=== PATIENT | female | born 1955 | race Caucasian/White ===

== ENCOUNTER 2016-12-16 14:37 | Inpatient (IN) ==
[2016-12-16] MEDS ORDERED: ASPIRIN EC PO ONE (15:53)
--- NOTE | 2016-12-16 16:34 | EKG Report ---
Test Performed on : 12/16/2016 4:24:07 PM Test Reason : chest pain Blood Pressure : / mmHG Vent. Rate : 075 BPM Atrial Rate : 075 BPM P-R Int : 142 ms QRS Dur : 078 ms QT Int : 422 ms P-R-T Axes : 031 018 046 degrees QTc Int : 471 ms Normal sinus rhythm. Normal ECG When compared with ECG of 31-AUG-2016 09:28, aberrant conduction. is no longer present Confirmed by Chirag Cho MD ([id number]) on 12/17/2016 9:47:45 PM
[2016-12-16 16:41] LABS: INR 1.08; PROTIME 11.5 Seconds (9.2-11.7); PTT 26.8 Seconds (22.0-36.0)
[2016-12-16 16:49] LABS: BASO% 0.4 % (0.0-0.8); EOS# 3.43 X1000 (0.0-0.7); EOS% 29.6 % (0.0-10.0); HEMATOCRIT 38.1 % (37.0-47.0); HEMOGLOBIN 12.4 g/dL (12.0-16.0); IMM GRAN# 0.03 X1000 (0.0-0.04); IMM GRAN% 0.3 % (0.0-0.5); LYMPH# 2.18 X1000 (1.2-3.4); LYMPH% 18.8 % (20.5-51.1); MANUAL DIFF NEEDED? YES; MCH 29.4 PG (27-31); MCHC 32.5 g/dL (33-37); MCV 90.3 FL (81-99); MONO# 0.66 X1000 (0.11-0.59); MONO% 5.7 % (1.7-9.3); MPV 9.5 FL (7.4-10.4); NEUT% 45.2 % (42.2-75.2); PLT 335 X1000 (130-400); RBC 4.22 XMIL (4.2-5.4)
[2016-12-16 17:08] LABS: AGAP 14; ALKALINE PHOSPHATASE 139 U/L (32-104); BUN 7 mg/dL (8-22); CALCIUM 9.1 mg/dL (8.8-10.2); CHLORIDE 96 mmol/L (98-107); CK PROFILE 81 U/L (24-173); COSMO 271; GOT 16 U/L (10-30); GPT 16 U/L (10-36); POTASSIUM 3.8 mmol/L (3.5-5.1); SODIUM 137 mmol/L (136-145); TCO2 27 mmol/L (25-35); TOTAL BILIRUBIN 0.26 mg/dL (0.20-1.00); TOTAL PROTEIN 7.1 g/dL (6.3-8.3)
[2016-12-16 17:22] LABS: BANDS 2 % (0-1); EOS 33 % (1-10); LYMPHS 18 % (21-51); MONO 1 % (1-9)
[2016-12-16] MEDS ORDERED: KLONOPIN PO PRN (18:05)
[2016-12-16] MEDS: LOVENOX SUBQ SCH (18:50)
[2016-12-16] MEDS: VITAMIN D PO SCH (21:16)
[2016-12-16] MEDS: GLUCOPHAGE XR PO SCH (21:16)
[2016-12-16] MEDS: AMBIEN PO SCH (21:16)
[2016-12-16] MEDS: NORCO-10 PO PRN (21:18)
[2016-12-16] MEDS: ADVAIR 250/50 DISKUS INH SCH (21:40)
[2016-12-16] MEDS: DUONEB (A & A) INH SCH (21:41)
--- NOTE | 2016-12-16 22:39 | HISTORY AND PHYSICAL ---
CHIEF COMPLAINT: Chest pain. HISTORY OF PRESENT ILLNESS: Ms. Medel is a 61-year-old, white female patient, complaining of chest pain which she described as a heaviness and pressure, starting since Friday, more related to exertion. The patient was getting short of breath walking across the room. The patient does have advanced COPD, on home oxygen and nebulizer treatment. The patient claims this feeling is different than her COPD and bronchitis feeling. The patient did have sweating at times. No radiation of pain to the arm. The patient does have multiple risk factors in the form of menopause, hypertension, hyperlipidemia, and IDDM. I evaluated patient in my office. I did EKG which revealed T-wave inversion in the septal leads. Considering her presentation, risk factors, EKG changes which were nonspecific though cannot be neglected, I decided to admit the patient for further care and workup. The patient does have chronic cough with scanty sputum production. No symptoms suggestive of COPD exacerbation. The patient does have chronic neck pain. She is being followed up by Pain [facility]. No recent change in the pattern of her neck pain. She denied any dysphagia or odynophagia. No abdominal pain. Denied diarrhea, blood or mucus in the stool. The patient does have polyuria, polydipsia. No recent weight loss or weight gain. No heat or cold intolerance. Does have arthritic pain in the knee. Denied vaginal discharge, spotting, bleeding. No further history available at this time. ALLERGIES: No known drug allergy. HOME MEDICATION: The patient is on nebulizer treatment, Lipitor, Klonopin, [place], Synthroid, Cozaar, metformin, singular, Prilosec. I do not have updated list of her medications. Patient is also on Cymbalta. PAST MEDICAL HISTORY: Chronic neck pain. Situational depression. Advanced COPD. Hypothyroidism. Hypertension. Hyperlipidemia. IDDM. Obesity. Gastritis and reflux disease. Rhinitis. PERSONAL HISTORY: Single. Nonsmoker. Denied alcohol or substance abuse. REVIEW OF SYSTEMS: As per HPI. FAMILY HISTORY: Significant for father who with lung cancer in his 50's. Mother with Parkinson's disease and dementia. One brother in his 40's with pulmonary embolism. PHYSICAL EXAMINATION: GENERAL: Middle-aged white female patient, in mild distress. VITAL SIGNS: Blood pressure 133/78, pulse 77, respiration 18, temperature 97.9 degrees. SKIN: Normal turgor. No rash or petechiae. HEENT: Head atraumatic, normocephalic. [place] conjunctivae. Anicteric sclerae. Extraocular muscle movement normal. Fundus cannot be penetrated. Good oral hygiene. No tonsillopharyngeal congestion or exudate. Ears and nose benign. NECK: Supple. No JVD, thyromegaly or lymphadenopathy. CHEST: Bibasilar crepitation. Occasional wheezing. No rales. CARDIOVASCULAR: S1 and S2 heard. No gallop or thrill. ABDOMEN: Soft, globular. Bowel sounds present. No organomegaly or mass. EXTREMITIES: No cyanosis, clubbing. No acute DVT. AUTOMOTIVE TIRE TECHNICIAN: Alert, awake able to move all 4 limbs. MUSCULOSKELETAL: Movement of cervical spine minimally painful. LABORATORY DATA/DIAGNOSTICS: WBC count 11.6, hemoglobin 12.4, hematocrit 38.1, platelet count 335,000. PT/INR 1.08. Electrolytes fairly benign. Alkaline phosphate is 139. EKG done on admission did reveal sinus rhythm. ST-T wave changes in the septal leads could be due to ischemia and are nonspecific. CONSIDERATIONS: Chest pain, typical features, multiple risk factors. I am going to admit the patient. Telemetry monitoring. Serial electrocardiograms and cardiac isoenzymes. Her admission troponin was normal. I am going to get dobutamine stress test in the morning. Her other problems include chronic obstructive pulmonary disease, hypertension, hyperlipidemia, and insulin-dependent diabetes mellitus, chronic neck pain. Situational depression. PLAN: Overall plan discussed at length with the patient. She is in agreement.
[2016-12-17] MEDS: DUONEB (A & A) INH SCH ×4 (03:42→19:46)
[2016-12-17 06:23] LABS: AGAP 11; ALBUMIN 3.7 g/dL (3.5-5.0); ALKALINE PHOSPHATASE 132 U/L (32-104); BUN 10 mg/dL (8-22); CALCIUM 9.3 mg/dL (8.8-10.2); CHLORIDE 103 mmol/L (98-107); CK PROFILE 93 U/L (24-173); COSMO 286; GOT 16 U/L (10-30); GPT 15 U/L (10-36); HDL 47 mg/dL (45-65); LDL 65 mg/dL; POTASSIUM 3.8 mmol/L (3.5-5.1); SODIUM 144 mmol/L (136-145); TCO2 30 mmol/L (25-35); TOTAL BILIRUBIN 0.37 mg/dL (0.20-1.00); TOTAL PROTEIN 6.8 g/dL (6.3-8.3); TRIGLYCERIDES 180 mg/dL (35-135); VLDL 36 mg/dL
[2016-12-17 06:53] LABS: BASO% 0.3 % (0.0-0.8); EOS# 3.13 X1000 (0.0-0.7); EOS% 33.8 % (0.0-10.0); HEMATOCRIT 37.4 % (37.0-47.0); IMM GRAN# 0.02 X1000 (0.0-0.04); IMM GRAN% 0.2 % (0.0-0.5); LYMPH# 1.82 X1000 (1.2-3.4); LYMPH% 19.7 % (20.5-51.1); MANUAL DIFF NEEDED? YES; MCH 29.1 PG (27-31); MCHC 32.1 g/dL (33-37); MCV 90.6 FL (81-99); MONO# 0.57 X1000 (0.11-0.59); MONO% 6.2 % (1.7-9.3); MPV 9.9 FL (7.4-10.4); NEUT% 39.8 % (42.2-75.2); PLT 313 X1000 (130-400); RBC 4.13 XMIL (4.2-5.4)
[2016-12-17] MEDS ORDERED: SYNTHROID PO SCH (07:00)
[2016-12-17 07:40] LABS: EOS 33 % (1-10); LYMPHS 25 % (21-51); MONO 1 % (1-9)
--- NOTE | 2016-12-17 07:50 | Diag Imaging Result Document ---
PROCEDURE NAME: CHEST-2 VIEWS - 12/16/2016 FRONTAL AND LATERAL CHEST, TWO VIEWS: COMPARISON: 08/31/2016. FINDINGS: The lungs are well expanded. The heart is not enlarged. The vessels are not distended. No pleural effusions. There is atelectasis in the left base. There may be a small underlying infiltrate as well. Mild scoliosis. IMPRESSION: Basilar atelectasis with possibly a small underlying infiltrate.
--- NOTE | 2016-12-17 08:06 | PROGRESS NOTE ---
DATE: 12/17/2016 SUBJECTIVE: Ms. Medel is doing better. She denied chest pain at rest. Patient does get shortness of breath and pressure walking to the bathroom. The patient claimed this is different pain than her COPD exacerbation. Multiple risk factors for coronary artery disease. The patient is scheduled to have dobutamine myocardial perfusion scan today. She denied any dysuria or hematuria. No unusual cough or expectoration. No nausea or vomiting. OBJECTIVE: Vital Signs: Noted. Neck: Supple. No JVD. Lungs: Bibasilar crepitations. Heart: S1 and S2 heard. Abdomen: Soft, globular. Bowel sounds present. Extremities: No cyanosis, clubbing. Minimal swelling. Lower legs, no acute DVT. FISHER LAMPARA NET: Alert, awake. Able to move all 4 limbs. LAB DATA: Done this morning reviewed. WBC count 9.26, hemoglobin 12, hematocrit 37.4. Electrolytes fairly benign. Her LDL cholesterol was 65, triglyceride 180. Magnesium checked yesterday was 1.7. Chest x-ray, official result is pending. CONSIDERATION: 1. The patient admitted with chest pain which she described different than her usual chronic obstructive pulmonary disease exacerbation type heaviness and tightness. The patient definitely will need a cardiac workup. I am going to get an echocardiogram, myocardial perfusion scan. With her history, I am going to get expert opinion of plaster pattern caster. 2. She does have advanced chronic obstructive pulmonary disease. 3. Chronic neck pain, being followed up by pain clinic. 4. Noninsulin-dependent diabetes mellitus. 5. Hypertension. 6. Hyperlipidemia. PLAN: I am going to check D-dimer, ProBNP, echocardiogram, and blood gas. Overall plan discussed with the patient. She is in agreement.
[2016-12-17] MEDS ORDERED: DOBUTAMINE 250 MG/D5W 250 ML ONE (08:42)
[2016-12-17] MEDS ORDERED: CYMBALTA PO SCH (09:00)
[2016-12-17] MEDS ORDERED: LIPITOR PO SCH (09:00)
[2016-12-17] MEDS ORDERED: ASPIRIN EC PO SCH (09:00)
[2016-12-17] MEDS ORDERED: SINGULAIR PO SCH (09:00)
[2016-12-17] MEDS ORDERED: PRILOSEC PO SCH (09:00)
[2016-12-17] MEDS ORDERED: COZAAR PO SCH (09:00)
[2016-12-17] MEDS: ADVAIR 250/50 DISKUS INH SCH ×2 (09:54→19:45)
[2016-12-17 10:19] LABS: ALLEN TEST YES; BE 3.3 mmoll (-3.0-3.0); BLOOD TYPE ARTERIAL; DRAW SITE R RADIAL; METHB 1.5 % (0.0-1.5); O2(CT) 15.7 mL/dL (15.0-23.0); PCO2(98.6) 45 mmHg (35-45); PO2(98.6) 61 mmHg (60-100); SAMPLE BLOOD; SAO2 97.1 % (95.0-100.0); THB 11.9 g/dL (11.5-17.4); pH(98.6) 7.41 (7.35-7.45)
[2016-12-17 10:22] LABS: MODALITY CANNULA
--- NOTE | 2016-12-17 10:58 | CONSULTATION ---
DATE OF CONSULTATION: 12/17/2017 INDICATION: Chest pain. HISTORY OF PRESENT ILLNESS: Ms. Medel is a 61-year-old, white female with a history of diabetes and COPD. She presented for evaluation of shortness of breath as well as chest discomfort. She has had 2 weeks of worsening shortness of breath. She reports no increasing fever, worsening cough, or productive cough over that time. She has continued with her baseline usage of home oxygen and inhalers. Over the last 3-4 days, she has had a constant pressure-like chest discomfort in her mid chest with no radiation. No nausea, vomiting, and no diaphoresis. There has been no exertional component to it. She has no previous history of cardiac issues. PAST MEDICAL HISTORY: 1. Significant for hypertension. 2. COPD. 3. Type 2 diabetes. 4. Tobacco abuse. 5. Depression. 6. Hypothyroidism. 7. Reflux disease. SOCIAL HISTORY: She quit smoking around 5 years ago after a 30 pack year history. No current alcohol use either. FAMILY HISTORY: Significant for CHF in her mother who is living. Father of lung cancer around the age of 57. REVIEW OF SYSTEMS: A 10 system review of systems is negative except for those things mentioned in the HPI. PHYSICAL EXAMINATION: Vital Signs: She is afebrile. Heart rate of 81, blood pressure 134/83. General: No acute distress. HEENT: Oropharynx is moist. Normal dentition. Eye examination shows pink conjunctivae and white sclerae. Neck: Examination shows no obvious thyromegaly or thyroid tenderness. Cardiovascular: She is in a regular rate and rhythm. She has no obvious murmurs. No S3. No lower extremity edema. Chest: Examination sounds clear. She has no increased work of breathing. She has a somewhat prolonged expiratory phase but no audible wheezing was heard. Abdomen: Soft, nontender, nondistended. She has no obvious organomegaly. Skin Examination: Warm and dry throughout without any rashes. Neurological: Moving all extremities well. Cranial nerves 2-12 are intact without any sensation deficits. Psychiatric: Alert and oriented, pleasant. She has normal mood and affect. DIAGNOSTIC DATA: EKG yesterday on presentation showed sinus rhythm, 75 beats per minute. No ischemic changes were identified. She had a PFT in August of 2014 showing moderate obstruction with severe reduction in diffusion capacity. Chest x-ray demonstrates basilar atelectasis with a possible small underlying infiltrate. Laboratory data demonstrates a white count of 9.2, hematocrit is 37.4, platelet count is 313,000. INR is 1.08. Sodium 144, potassium is 3.8, BUN is 10, creatinine is 0.8. Cardiac enzymes are negative times multiple sets. LDL was 65 and HDL 47. ASSESSMENT: 1. Chest pain. 2. Chronic obstructive pulmonary disease. PLAN: Patient has some typical and atypical features. She has several days of chest pressure with no worsening or improvement. There is no exertional component. Myocardial perfusion imaging is currently pending, as is the echocardiogram. If these studies are unremarkable, then I would likely evaluate a noncardiac source.
[2016-12-17] MEDS: NORCO-10 PO PRN ×2 (11:30→21:17)
[2016-12-17] MEDS: VITAMIN D PO SCH ×2 (15:24→21:17)
--- NOTE | 2016-12-17 17:05 | Diag Imaging Result Document ---
PROCEDURE NAME: MYOCARDIAL PERF SCAN, STR/REST - 12/17/2016 PROCEDURE: Rest/stress dobutamine myocardial perfusion study. INDICATION: Patient with chest pain. Patient is 61 years of age. DESCRIPTION: Patient came into the nuclear lab and received a rest injection of technetium-99 sestamibi 14.9 mCi. Multiple tomographic views of the cardiac structure were obtained at rest. Subsequently, the patient underwent infusion of dobutamine per protocol. A total dose of 22.8 mg of dobutamine were infused. The infusion time was 10 minutes and 31 seconds, and the maximum infusion rate was 40 mcg per kg per minute. At peak infusion, the patient was injected with technetium-99 sestamibi 43.3 mCi. Multiple tomographic views of the cardiac structure were obtained following the completion of the protocol. SUMMARY OF THE ELECTROCARDIOGRAPHIC PORTION OF THE STUDY: Resting electrocardiogram showed sinus rhythm, rate 73 beats per minute. Resting blood pressure 123/82. Resting ECG shows early transition. During infusion of dobutamine, the heart rate increased to a maximum of 141 beats per minute. That represents 88% of maximum predicted heart rate for the patient's age. The blood pressure actually dropped to 101/51. Patient reported no chest pain, shortness of breath, or palpitations. ECG showed no ischemic changes. Occasional PAC's/PVC' were noted. Following the completion of infusion, the heart rate and blood pressure returned back to baseline. No significant abnormalities were noted during the recovery phase. SUMMARY: Electrocardiographic response to infusion of dobutamine is deemed to be negative for ischemia. SUMMARY OF MYOCARDIAL PERFUSION PORTION OF THE STUDY: Poststress tomographic views of the left ventricle showed a very trivial focal apical anterior defect. The rest images showed the same thing. This is very tiny apical anterior defect. This is probably breast attenuation artifact. Polar plots revealed the same. There is no convincing evidence of any inducible ischemia nor myocardial scar. Gated SPECT shows normal left ventricular systolic function. Ejection fraction is estimated at 77 % with normal ventricular volumes, no wall motion abnormality. The lung/heart ratio is normal. TID is normal. SUMMARY: This study showed: 1. Unremarkable electrocardiographic response to infusion of dobutamine. 2. Normal poststress myocardial perfusion scan. There is no scintigraphic evidence of pharmacologically induced myocardial ischemia utilizing dobutamine protocol. 3. Normal left ventricular systolic function, ejection fraction estimated at 77 % with normal ventricular volumes, no wall motion abnormality. 4. This study represents low risk for ischemic events. Clinical correlation is recommended. [facility]
[2016-12-17] MEDS: LOVENOX SUBQ SCH (17:43)
--- NOTE | 2016-12-17 17:50 | ECHO REPORT ---
ORDER DATE: 12/17/2016 INTERPRETING PHYSICIAN: Dr. York CLINICAL INDICATIONS: Oxrfm-iag-onch-old female with chest pain. M-MODE MEASUREMENTS: Right ventricle: 2.3 cm. Left ventricle end diastole: 5.0 cm. Left ventricle end systole: 3.4 cm. Posterior wall: 0.8 cm. Interventricular septum: 0.8 cm. Left atrium: 4.1 cm. Aortic root: 2.1 cm. SUMMARY OF 2-DIMENSIONAL IMAGING: The global left ventricular systolic function is normal. Ejection fraction 59%. No wall motion abnormality is noted. Right ventricle appears to be normal. Aortic valve looks normal. Color flow mapping unremarkable. Pulmonic valve looks normal. Color flow mapping unremarkable. The tricuspid valve shows very mild degree of regurgitation. Pulmonary pressure is normal estimated at 29 mmHg. The inferior vena cava is not dilated. The mitral valve looks normal. Color flow mapping indicates very mild degree of regurgitation. Pulse wave Doppler of mitral inflow shows reversal of the E and the A wave. Tissue Doppler of septal and lateral mitral anulus averages 7-1/2 cm. There is no diastolic dysfunction. The pulmonary venous flow is normal. SUMMARY: This study showed: 1. Normal left ventricular systolic function. 2. No diastolic dysfunction. 3. Mild degree of mitral, tricuspid, and pulmonic regurgitation. 4. No pericardial effusion, masses, nor thrombus. Pulmonary pressure is normal. Clinical correlation is recommended.
[2016-12-17] MEDS ORDERED: SOLU-MEDROL IV SCH (18:30)
--- NOTE | 2016-12-17 18:39 | PROGRESS NOTE ---
DATE: 12/17/2016 Ms. Medel is feeling some better. The patient is complaining of cough with scanty sputum production. No high-grade fever or chills. No typical chest pain. No nausea, vomiting. Her symptoms now more suggestive of bronchitis and COPD exacerbation. OBJECTIVE: Vital Signs: Reviewed. Lungs: Bibasilar crepitations, occasional wheezing. CVS: S1 and S2 heard. Abdomen: Soft, globular. Bowel sounds present. REACTOR SERVICE OPERATOR: Alert, awake, able to move all 4 limbs. The patient's myocardial perfusion scan was negative for reversible ischemia. Normal left ventricular systolic function. Test results discussed with the patient. Echocardiogram results reviewed and discussed with the patient. Her other problems include COPD, acute bronchitis and exacerbation. I am going to treat her with IV antibiotics and steroid. We will watch patient here tonight. If clinical condition permits, I am going to discharge her home tomorrow. Plan discussed with the patient. She is in agreement.
[2016-12-17] MEDS: AMBIEN PO SCH (21:17)
[2016-12-17] MEDS: ROCEPHIN 1 GM/NS 50 ML IV SCH (21:17)
[2016-12-17] MEDS: GLUCOPHAGE XR PO SCH (21:17)
[2016-12-17] MEDS ORDERED: AMIDATE ONE (21:48)
[2016-12-17] MEDS ORDERED: QUELICIN ONE (21:48)
[2016-12-17 22:22] LABS: ALLEN TEST YES; BE -5.3 mmoll (-3.0-3.0); BLOOD TYPE ARTERIAL; DRAW SITE R BRACHIAL; METHB 1.6 % (0.0-1.5); O2(CT) 18.5 mL/dL (15.0-23.0); PO2(98.6) 411 mmHg (60-100); SAMPLE BLOOD; THB 12.7 g/dL (11.5-17.4)
[2016-12-17 22:25] LABS: PCO2(98.6) 76 mmHg (35-45); pH(98.6) 7.13 (7.35-7.45)
[2016-12-17 22:26] LABS: MODALITY AMBU BAG
[2016-12-17 22:52] LABS: CALCIUM 8.4 mg/dL (8.8-10.2)
[2016-12-17] MEDS ORDERED: NS ONE (23:00)
[2016-12-17 23:25] LABS: ALLEN TEST YES; BE 1.8 mmoll (-3.0-3.0); BLOOD TYPE ARTERIAL; DRAW SITE R RADIAL; METHB 1.7 % (0.0-1.5); O2(CT) 16.8 mL/dL (15.0-23.0); PO2(98.6) 213 mmHg (60-100); SAMPLE BLOOD; SAO2 99.9 % (95.0-100.0); SRATE 14 BPM; TVOL 500 mL
[2016-12-17 23:28] LABS: MODALITY VENTILATOR
[2016-12-17 23:29] LABS: PCO2(98.6) 60 mmHg (35-45)
[2016-12-17] MEDS: DIPRIVAN 1% 100 ML IV SCH (23:57)
[2016-12-18] MEDS: ROCEPHIN 1 GM/NS 50 ML IV SCH ×2 (00:05→09:39)
[2016-12-18] MEDS: DIPRIVAN 1% 100 ML IV SCH ×10 (02:24→23:58)
--- NOTE | 2016-12-18 03:11 | PROGRESS NOTE ---
DATE: 12/17/2016 I was called and talked with the hospital at 9:40 p.m. alanna. Nurse told me that the patient was not doing well. She was one of Dr. Pereira's patients and that she was having trouble breathing. Her oxygen saturations dropped on 2 L of oxygen from 94 down to 79%. While we were talking on the phone, I was getting more information. She became worse. A code was called. Patient was intubated by the emergency room physician and I came to the hospital. By the time I got to the hospital, the patient was already intubated. It turns out that she had a stress test for chest pain earlier today, that was a dobutamine stress test that was normal. Her echocardiogram was normal. Her enzymes studies were normal. She had been having chest pain and that is what brought her to the hospital. She has had a long history of COPD. She goes to the chronic pain clinic according to her records. It was noted that on her previous EKGs and on her stress test and echocardiogram, she was in a normal sinus rhythm but she did go into atrial fibrillation with a rapid ventricular rate of around 113 beats per minute. She never became hypotensive so this was much more of a respiratory arrest and happened to go into atrial fibrillation. Earlier in the day after her stress test, Dr. Pereira thought that she was having symptoms more of COPD exacerbation and bronchitis, and ordered IV antibiotics, A and A breathing treatments, and IV steroids. It is quite possible that the treatments with steroids might have kicked off her atrial fibrillation as that is a possible side effect. When I arrived to the hospital, Dr. Cruz, the emergency room physician, had already seen her and intubated her. I talked with him about what he had seen and had done. I checked the patient and vital signs were stable at the time. HEENT could not be evaluated fully as she was intubated. Lungs sounded clear to auscultation. Heart was irregular. Abdomen was soft with active bowel sounds. I am not sure whether she was sedated a little bit at that time or not but she was moving all extremities. Nurses asked for some propofol that they could use to quiet her down a little bit with the tube. I then went and put some orders in the computer for her and did a transfer. I called and talked with Dr. Tucker, commercial coordinator, and consulted him. I also talked with Dr. Alex Espinoza, commissary officer, who had already been consulted earlier today and made him aware of the events that had been occurring. She has had a chest x-ray for tube placement. I have not seen those results yet. Her blood gas after intubation showed a pH of 7.13, pCO2 of 76, PO2 of 411 on FiO2 of 100%. ASSESSMENT: 1. Respiratory arrest. 2. Atrial fibrillation. 3. Exacerbation of chronic obstructive pulmonary disease. PLAN: Discussed with Dr. Tucker about the possibility of a pulmonary embolism, though she had been on Lovenox already. I did order a D-dimer and he said that he would look at her later and decide whether she needed a pulmonary angiogram or not. All in all I, spent 65 minutes in her behalf. Please note, I did ask about family members but they are not here at this time. We will see if we can find them.
[2016-12-18 04:44] LABS: ALLEN TEST YES; BE 2.7 mmoll (-3.0-3.0); BLOOD TYPE ARTERIAL; DRAW SITE R RADIAL; METHB 1.5 % (0.0-1.5); O2(CT) 16.1 mL/dL (15.0-23.0); PO2(98.6) 84 mmHg (60-100); SAMPLE BLOOD; SAO2 97.8 % (95.0-100.0); SRATE 12 BPM; TVOL 600 mL; pH(98.6) 7.35 (7.35-7.45)
[2016-12-18 04:46] LABS: MODALITY VENTILATOR; PCO2(98.6) 53 mmHg (35-45)
[2016-12-18 05:02] LABS: BASO% 0.1 % (0.0-0.8); EOS# 0.19 X1000 (0.0-0.7); EOS% 1.3 % (0.0-10.0); HEMOGLOBIN 12.3 g/dL (12.0-16.0); IMM GRAN# 0.05 X1000 (0.0-0.04); IMM GRAN% 0.3 % (0.0-0.5); LYMPH# 0.87 X1000 (1.2-3.4); LYMPH% 5.9 % (20.5-51.1); MANUAL DIFF NEEDED? YES; MCH 29.4 PG (27-31); MCHC 32.4 g/dL (33-37); MCV 90.7 FL (81-99); MONO# 0.32 X1000 (0.11-0.59); MONO% 2.2 % (1.7-9.3); MPV 9.8 FL (7.4-10.4); NEUT% 90.2 % (42.2-75.2); PLT 352 X1000 (130-400); RBC 4.19 XMIL (4.2-5.4)
[2016-12-18 05:22] LABS: AGAP 12; BUN 13 mg/dL (8-22); CALCIUM 8.8 mg/dL (8.8-10.2); CHLORIDE 98 mmol/L (98-107); COSMO 275; POTASSIUM 4.2 mmol/L (3.5-5.1); SODIUM 136 mmol/L (136-145); TCO2 26 mmol/L (25-35)
--- NOTE | 2016-12-18 06:02 | EKG Report ---
Test Performed on : 12/17/2016 10:03:27 PM Test Reason : Order Cancelled/Rule Out SD Blood Pressure : / mmHG Vent. Rate : 115 BPM Atrial Rate : 077 BPM P-R Int : 000 ms QRS Dur : 068 ms QT Int : 310 ms P-R-T Axes : 000 042 067 degrees QTc Int : 428 ms Atrial fibrillation. with rapid ventricular response. with premature ventricular or aberrantly conduc shani complexes. Nonspecific ST and T wave abnormality Abnormal ECG When compared with ECG of 16-DEC-2016 16:24, Atrial fibrillation. has replaced Sinus rhythm. Vent. rate has increased BY 40 BPM Confirmed by Chirag Cho MD ([id number]) on 12/18/2016 9:46:35 AM
[2016-12-18] MEDS: HUMULIN R SUBQ SCH ×4 (06:24→21:31)
[2016-12-18 06:25] LABS: BANDS 4 % (0-1); LYMPHS 6 % (21-51); MONO 2 % (1-9)
[2016-12-18 07:01] LABS: MAGNESIUM 2.1 mg/dL (1.5-2.7)
--- NOTE | 2016-12-18 07:10 | PROGRESS NOTE ---
DATE: 12/18/2016 SUBJECTIVE: Ms Medel is doing fair. Yesterday, when I evaluated her in the evening, the patient was doing very well. She was complaining of some chest congestion, cough. No typical chest pain, unusual shortness of breath. She was more concerned about her bronchitis and COPD. Chest x-ray was showing nonspecific infiltrate. I started patient on Solu-Medrol and Rocephin. Patient did have both of these medicines in the past. Patient called nurse complaining that she was not able to breathe, short of breath. She did receive Solu-Medrol. The patient developed a rash on the left arm, erythema, and she had respiratory arrest. Patient was coded. ER physician intubated. The patient was brought to the emergency room. uniform room attendant physician, Dr. Thomas, evaluated the patient. I reviewed on-call doctor's note. The patient is doing fairly well. Once the decreased dose of propofol, patient is arousable. No history of typical chest pain, nausea, vomiting. The patient does have advanced COPD, chronic pain, hypertension, hyperlipidemia, NIDDM. The patient is being followed up by Dr. Carter as an outpatient. PHYSICAL EXAMINATION: Vital Signs: Her vital signs noted. Lungs: Bilateral air entry present. No rales. CVS: S1 and S2 heard. Abdomen: Soft, globular. Bowel sounds present. Extremities: No cyanosis, clubbing. No acute DVT. GROCERY SHOPPER: Patient is sedated on the ventilator. Uncooperative for detailed neurologic evaluation. CONSIDERATION: 1. Acute respiratory failure. I did check her D-dimer yesterday and it was normal. Repeat D- dimer was 0.75. The patient had myocardial perfusion scan done yesterday and it was negative for reversible ischemia. Echocardiogram was unremarkable. 2. About the rash, the patient did not receive any new medicine yesterday. The patient has had prednisone in the past. I am not sure whether it was delayed reaction to her nuclear medicine. We will discuss with Dr. Espinoza. 3. Her other problems include chronic obstructive pulmonary disease, hypertension, hyperlipidemia, and noninsulin-dependent diabetes mellitus. PLAN: A pulmonary critical care consult, Dr. Carter. I am going to start her on IV antibiotics, pulmonary toilet, ventilatory support. GI and DVT prophylaxis. Overall prognosis fair to guarded. I tried to look for a family member. They are not available at this time. Journeyman Welder and end finder forming department following patient with us. Her lab data done this morning did reveal leukocytosis with left shift. Blood gas, pH 7.35, pCO2 53, PO2 was 84. Electrolytes were fairly benign. I am going to check magnesium and phosphorus.
[2016-12-18 07:19] LABS: CK-MB 3.68 ng/mL (0.0-5.0)
[2016-12-18 07:30] LABS: HEMOGLOBIN A1C 5.1 % (4.8-6.0)
[2016-12-18] MEDS: DUONEB (A & A) INH SCH ×5 (07:32→22:54)
--- NOTE | 2016-12-18 07:46 | Diag Imaging Result Document ---
PROCEDURE NAME: CHEST-1 VIEW - 12/18/2016 AP PORTABLE CHEST AT 0500 HOURS: FINDINGS: There is an endotracheal tube with its tip slightly below the thoracic inlet. Compared to 12/17/2016, there is slightly more interstitial opacity in the lung bases but the inspiration is also less optimal than on the previous study. IMPRESSION: Mild pulmonary edema.
--- NOTE | 2016-12-18 08:21 | Diag Imaging Result Document ---
PROCEDURE NAME: CHEST-PORTABLE - 12/17/2016 AP PORTABLE CHEST AT 2200 HOURS: FINDINGS: There is an endotracheal tube with its tip just below the thoracic inlet. There is some atelectasis in the right upper lobe which was not present on 12/16/2016. Otherwise, there has been no significant change. IMPRESSION: Atelectasis right upper lobe.
[2016-12-18 08:42] LABS: URINE CULTURE NEEDED? NO; URINE MICRO REVIEW NEEDED? NO; URINE SOURCE CATH
[2016-12-18 08:47] LABS: BILIRUBIN URINE NEGATIVE (NEGATIVE); BLOOD URINE NEGATIVE (NEGATIVE); COLOR YELLOW; GLUCOSE URINE TRACE mg/dL (NEGATIVE); LEUKOCYTES URINE NEGATIVE (NEGATIVE); NITRITE URINE NEGATIVE (NEGATIVE); PH URINE 6.5; PROTEIN URINE 70 mg/dL (NEGATIVE); SP GRAVITY URINE 1.022; TURBIDITY URINE CLEAR (CLEAR); UROBILINOGEN URINE NORMAL (NORMAL)
[2016-12-18 08:48] LABS: UR EPITHELIAL CELLS <10 /HPF (<10); URINE BACTERIA NEGATIVE /HPF; URINE RBC <10 /HPF (<10); URINE WBC <10 /HPF (<10)
--- NOTE | 2016-12-18 08:50 | EKG Report ---
Test Performed on : 12/18/2016 07:34:54 AM Test Reason : CP Blood Pressure : / mmHG Vent. Rate : 096 BPM Atrial Rate : 096 BPM P-R Int : 162 ms QRS Dur : 066 ms QT Int : 368 ms P-R-T Axes : 045 017 054 degrees QTc Int : 464 ms Normal sinus rhythm. Nonspecific T wave abnormality Abnormal ECG When compared with ECG of 17-DEC-2016 22:03, Sinus rhythm. has replaced Atrial fibrillation. Confirmed by Theresa OLIVARES, Davon Sales ([id number]) on 12/20/2016 5:19:28 PM
--- NOTE | 2016-12-18 09:32 | CONSULTATION ---
DATE OF CONSULTATION: 12/18/2016 REFERRING PHYSICIAN: Dr. Uriah Pereira.[id number] CHIEF COMPLAINT: Acute respiratory failure. HISTORY OF PRESENT ILLNESS: This is a 61-year-old, female with past medical history of situational depression, COPD, hypothyroidism, hypertension, hyperlipidemia, diabetes, obesity and GERD, that initially presented to the hospital with complaints of chest pain. She was placed on the floor and worked up for her cardiac complaints. During her hospital stay, she began complaining of chest congestion and cough and was started on Rocephin and IV steroids. She also had a myocardial perfusion scan. At some point, she began having more respiratory distress and eventually went into respiratory arrest. She was coded, taken to the ER, intubated by ER physician and sent to the ICU for close monitoring, evaluation and treatment. REVIEW OF SYSTEMS: Unable to obtain at this time. PAST MEDICAL HISTORY: As mentioned in HPI, otherwise noncontributory. ALLERGIES: No known drug allergies. SOCIAL HISTORY: Denies use of tobacco, alcohol, or illicit drugs. FAMILY HISTORY: Notable for lung cancer, Parkinson disease, dementia and PE's. PHYSICAL EXAMINATION: Vital signs: Temperature 97.6, heart rate 96, respiratory rate 13, blood pressure 142/85 and oxygen saturation 96%. General: Lying in bed, intubated and sedated. Cardiovascular: S1, S2 present. Chest: Reduced entry. Abdomen: Soft. Bowel sounds present in all quadrants. Extremities: Negative for edema. Neuro: Sedated. ACTIVE MEDICATIONS: DuoNeb, Rocephin, Humulin R, Protonix, Diprivan. LABS AND INVESTIGATIONS: WBC 14.8, RBCs 4.1, hemoglobin 12.3, hematocrit 38, platelet count 352. Sodium 136, potassium 4.2, chloride 98, CO2 26, anion gap 12, BUN 13, creatinine 0.7. Glucose 153. Chest x-ray reveals mild pulmonary edema. Blood gas reveals a pH of 7.35, pCO2 53, PO2 of 84, HC03 27, base excess 2.7, saturated oxygen of 98. ASSESSMENT AND PLAN: This is a 61-year-old, female with a past medical history mentioned in the history of present illness that presented to the hospital initially for chest pain. Respiratory failure and COPD. She had an essentially negative cardiac workup, but at some point went into respiratory arrest and was coded and intubated and placed in the intensive care unit. Continue ventilator support. Also, intravenous antibiotics, inhaled bronchodilators. Gastrointestinal and deep vein thrombosis prophylaxis. Further recommendations pending diagnostic studies. Dr. Carter will take over as she is known to him. Dictated by ELYSIA Schaffer for Brinda Tucker MD MTDD
[2016-12-18] MEDS: PROTONIX IV SCH (09:40)
[2016-12-18] MEDS: LOVENOX SUBQ SCH (09:40)
[2016-12-18] MEDS: SODIUM CHLORIDE 0.9% INJ SCH (09:40)
[2016-12-18] MEDS: MORPHINE IV PRN ×3 (13:19→16:59)
[2016-12-18] MEDS: ATIVAN IV PRN ×2 (13:19→16:47)
--- NOTE | 2016-12-18 15:00 | PROGRESS NOTE ---
DATE: 12/18/2016 SUBJECTIVE: The events of last night were noted. Ms. Medel apparently had a respiratory event where she became extremely short of breath. She was also noted to be in atrial fibrillation. Apparently, she had extremely low saturations and heart rate dropped into the 30s. I do not have any telemetry information around that time other than an episode of atrial fibrillation being noted with rates in the low 100s to 120s or so. She was subsequently intubated. PHYSICAL EXAMINATION: Vital Signs: She has been afebrile. Her heart rate is 97. Presently, she is in sinus rhythm. Blood pressure 131/77. General: She is in no acute distress. She is sedated, on the ventilator. Cardiovascular: She is in a regular rate and rhythm. She has no obvious murmurs. There is no S3 present. She has no lower extremity edema. Chest: Notable for clear mechanical breath sounds heard throughout all lung trent. Abdomen: Soft, nontender, and nondistended. She has no obvious organomegaly. Skin: Warm and dry throughout. PERTINENT DATA: Her EKG yesterday at 2203 shows atrial fibrillation with a rate of 115 beats per minute. No clear ischemic changes noted. At 2203, she again appears to be in atrial fibrillation around 113 beats per minute with no clear ischemic changes. EKG this morning appears to show sinus rhythm at 96 beats per minute. Her laboratory data shows a white count of 14.8, hematocrit 38, platelet count 352,000. She has a left shift with a bandemia of 4. Her ABG shows a pH of 7.35, pCO2 of 53 and pO2 is 27. Her sodium is 136, potassium 4.2, BUN is 13, creatinine 0.7. Her D-dimer was 0.75 yesterday. ASSESSMENT: 1. Respiratory failure. 2. New onset atrial fibrillation. PLAN: The patient had myocardial perfusion imaging performed yesterday which was unremarkable. In addition, she had an echocardiogram. This demonstrated an ejection fraction of 59%. She had really unremarkable valvular function. Consideration for possible balanced ischemia that could have caused this event; however, chest x-rays do not show florid pulmonary edema. However, we have no chest x-ray from before the event, so perhaps she could have been treated with positive pressure ventilation and that improved the pulmonary edema. It would be reasonable to pursue cardiac catheterization if no other etiology for this event is found. I would recommend weaning off the ventilator if possible. I will check a limited echocardiogram to re-evaluate ejection fraction and I will also check a duplex renal artery study.
--- NOTE | 2016-12-18 17:16 | ECHO REPORT ---
ORDER DATE: 12/18/2016 INDICATION FOR THE STUDY: Respiratory failure. FINDINGS: This is a limited study done to evaluate for etiology of respiratory failure. 1. There is no evidence of mitral valve prolapse. No Doppler evaluation of the mitral valve was performed. 2. Aortic valve opens well. There is no Doppler evaluation of the aortic valve. 3. No pericardial effusion is identified. 4. The ejection fraction appears to be normal with an estimated EF greater than 55%. I do not see any obvious segmental wall motion abnormalities on this study. There is limited resolution of the endocardial borders. 5. Right heart is difficult to visualize on this study but overall appears to be normal in size and function.
--- NOTE | 2016-12-18 17:21 | Diag Imaging Result Document ---
PROCEDURE NAME: DUPLEX RENAL ARTY OR VEIN LMTD - 12/18/2016 BILATERAL RENAL ARTERY DOPPLER: COMPARISON: CT, 03/01/2014. FINDINGS: The exam is extremely challenging due to the patient's size and condition. The renal sizes are normal. Echotexture is normal. The right kidney measures 9.6 x 4.7 x 4.4 cm. The left kidney measures 9.1 x 5.2 x 4.3 cm. The renal artery resistive indices are normal. These measure about 0.56 bilaterally. IMPRESSION: Grossly normal exam.
[2016-12-18] MEDS: NS 1,000 ML IV SCH (19:21)
[2016-12-19] MEDS: DIPRIVAN 1% 100 ML IV SCH ×4 (02:11→08:32)
[2016-12-19] MEDS: ATIVAN IV PRN (02:31)
[2016-12-19] MEDS: MORPHINE IV PRN ×3 (02:47→09:01)
[2016-12-19] MEDS: DUONEB (A & A) INH SCH ×6 (03:09→22:49)
[2016-12-19 04:52] LABS: ALLEN TEST YES; BE 3.1 mmoll (-3.0-3.0); BLOOD TYPE ARTERIAL; DRAW SITE R RADIAL; METHB 1.5 % (0.0-1.5); O2(CT) 15.5 mL/dL (15.0-23.0); PCO2(98.6) 49 mmHg (35-45); PO2(98.6) 164 mmHg (60-100); SAMPLE BLOOD; SAO2 100.9 % (95.0-100.0); SRATE 12 BPM; THB 11.1 g/dL (11.5-17.4); TVOL 600 mL; pH(98.6) 7.38 (7.35-7.45)
[2016-12-19 04:55] LABS: MODALITY VENTILATOR
[2016-12-19 05:26] LABS: MANUAL DIFF NEEDED? NO
[2016-12-19 05:32] LABS: BASO% 0.2 % (0.0-0.8); EOS# 0.83 X1000 (0.0-0.7); EOS% 6.6 % (0.0-10.0); HEMATOCRIT 35.9 % (37.0-47.0); HEMOGLOBIN 11.5 g/dL (12.0-16.0); IMM GRAN# 0.03 X1000 (0.0-0.04); IMM GRAN% 0.2 % (0.0-0.5); LYMPH# 1.86 X1000 (1.2-3.4); LYMPH% 14.9 % (20.5-51.1); MCH 29.5 PG (27-31); MCV 92.1 FL (81-99); MONO# 1.04 X1000 (0.11-0.59); MONO% 8.3 % (1.7-9.3); MPV 10.4 FL (7.4-10.4); NEUT% 69.8 % (42.2-75.2); PLT 301 X1000 (130-400)
[2016-12-19 05:56] LABS: AGAP 13; ALBUMIN 3.6 g/dL (3.5-5.0); ALKALINE PHOSPHATASE 131 U/L (32-104); BUN 16 mg/dL (8-22); CALCIUM 8.6 mg/dL (8.8-10.2); CHLORIDE 100 mmol/L (98-107); COSMO 278; GOT 40 U/L (10-30); GPT 31 U/L (10-36); POTASSIUM 3.9 mmol/L (3.5-5.1); SODIUM 138 mmol/L (136-145); TCO2 25 mmol/L (25-35); TOTAL BILIRUBIN 0.34 mg/dL (0.20-1.00); TOTAL PROTEIN 6.4 g/dL (6.3-8.3)
[2016-12-19] MEDS: HUMULIN R SUBQ SCH ×4 (06:14→20:59)
--- NOTE | 2016-12-19 06:23 | Diag Imaging Result Document ---
PROCEDURE NAME: CHEST-1 VIEW - 12/19/2016 PORTABLE CHEST: COMPARISON: Compared to 12/18/2016. FINDINGS: The lungs are well expanded. The endotracheal tube remains in good position. The heart is not enlarged. Minimal increased interstitial markings. No consolidation. No pleural effusions identified. IMPRESSION: Minimal increased interstitial markings believed to be pulmonary edema.
[2016-12-19] MEDS ORDERED: LASIX IV ONE ×3 (06:30→22:00)
[2016-12-19] MEDS: NS 1,000 ML IV SCH ×2 (06:32→19:43)
--- NOTE | 2016-12-19 06:53 | PROGRESS NOTE ---
DATE: 12/19/2016 SUBJECTIVE: Ms. Medel is doing fair. The patient is status post acute respiratory failure, on mechanical ventilator. Tolerating it well. Blood gas is improving. The patient had low-grade fever at 99.7. No nausea or vomiting. Yesterday, urine output was low. I started her on some IV fluid. No significant tachy arrhythmia on telemetry. She is tolerating the ventilator well. History part is limited. Blood pressure is low normal. OBJECTIVE: Vital signs noted. Neck supple. No JVD. Lungs: Few basal crepitations. CVS: S1 and S2 heard. Abdomen soft, globular. Bowel sounds present. Extremities: No cyanosis, clubbing. No acute DVT. EVENT DECORATOR AND DESIGNER: Patient is sedated. LABORATORY DATA: Lab data done today fairly benign. Blood sugar results reviewed. Blood gas: pH 7.38, pCO2 of 49, PO2 of 164. WBC count 12.49, hemoglobin 11.5, hematocrit 35.9. The patient does have significant Eosinophilia. CONSIDERATION: 1. Acute respiratory failure. 2. Pneumonia. Chest x-ray showing some pulmonary edema. 3. Chronic pain. 4. Hypertension. 5. [id number] diabetes. Patient was off and on steroid in the past. If her blood pressure continues to drop, I am going to consider giving her IV Solu-Medrol. Continue rest of the treatment. Close observation. I appreciate Cardiology and Pulmonary help managing this patient.
[2016-12-19] MEDS: SODIUM CHLORIDE 0.9% INJ SCH (08:46)
[2016-12-19] MEDS: PROTONIX IV SCH (08:46)
[2016-12-19] MEDS: ROCEPHIN 1 GM/NS 50 ML IV SCH (08:46)
[2016-12-19] MEDS: LOVENOX SUBQ SCH (08:46)
[2016-12-19] MEDS ORDERED: LASIX ONE (08:56)
[2016-12-19 09:49] LABS: ALLEN TEST YES; BE 3.2 mmoll (-3.0-3.0); BLOOD TYPE ARTERIAL; DRAW SITE L RADIAL; METHB 1.6 % (0.0-1.5); O2(CT) 16.4 mL/dL (15.0-23.0); PO2(98.6) 61 mmHg (60-100); SAMPLE BLOOD; SAO2 94.6 % (95.0-100.0); THB 12.8 g/dL (11.5-17.4); pH(98.6) 7.37 (7.35-7.45)
[2016-12-19 09:50] LABS: MODALITY VENTILATOR; PCO2(98.6) 51 mmHg (35-45)
--- NOTE | 2016-12-19 11:37 | PROGRESS NOTE ---
DATE: 12/19/2016 SUBJECTIVE: Ms. Medel was extubated this morning. She reports she feels good. She does not report significant shortness of breath presently. OBJECTIVE: Vital Signs: On physical examination, she has had a T-max of 99.7 degrees early this morning. Current heart rates are in the 90s. Blood pressure 114/81. General: She is in no acute distress. Cardiovascular: She sounds to be in a regular rate and rhythm presently. No obvious murmurs. She has trace lower extremity edema. She has warm and well perfused lower extremities. Chest exam: Clear to auscultation bilaterally. She has a somewhat poor inspiratory effort presently. She has no increased work of breathing. Abdomen: Soft, nontender, nondistended. She has no obvious organomegaly. PERTINENT DATA: White count is 12.5, hematocrit 36, platelet count 301. Her sodium is 138, potassium 3.9, BUN 16, creatinine 0.8. ASSESSMENT: Respiratory arrest. PLAN: At this point, she has a relatively unexplained respiratory event. Events seem out of proportion to the episode of atrial fib that she had, as well as out of proportion to the degree of her lung disease, as well as degree of known cardiac disease that she has based on her recent stress test. We will likely consider cardiac catheterization next week to try to identify if she has balanced ischemia that could potentially have led to her respiratory arrest.
--- NOTE | 2016-12-19 14:07 | CONSULTATION ---
DATE OF CONSULTATION: 12/19/2016 REASON FOR CONSULTATION: Respiratory failure. HISTORY OF PRESENT ILLNESS: Ms. Medel is a 61-year-old white female with COPD, chronic hypoxemic respiratory failure, and chronic pain syndrome who was admitted to the hospital on 12/16/2016 with increasing shortness of breath and chest pain. The patient was evaluated by cardiology. Echocardiogram revealed normal LV function with normal pulmonary artery pressures. She underwent a myocardial perfusion study which revealed a small focal apical anterior defect felt to represent breast attenuation. On the evening of 12/17/2016, the patient developed increasing chest pressure/pain and increasing shortness of breath. She subsequently developed agonal breathing requiring intubation and mechanical ventilation. Pulmonary consultation was requested and Dr. Tucker took care of the patient through the evening. I have seen the patient in the past and she was transferred to my service. The patient was initially evaluated yesterday afternoon. She is now awake, alert, and is following commands on mechanical ventilation. PAST MEDICAL HISTORY AND PROBLEM LIST: 1. COPD with chronic hypoxemic respiratory failure. 2. Obesity. 3. Diabetes mellitus. 4. Hypothyroidism. 5. Dyslipidemia. 6. History of depression. 7. Chronic pain syndrome with follow up in the pain clinic for chronic neck pain. SOCIAL HISTORY: She has an attentive family. No current alcohol or tobacco use. FAMILY HISTORY: Positive for dementia, Parkinson's disease, pulmonary emboli, and lung cancer. REVIEW OF SYSTEMS: Limited with the current intubation. PHYSICAL EXAMINATION: GENERAL: Obese white female with a BMI of 36. VITAL SIGNS: BP 114/81, heart rate 93, respiratory rate 12, and oxygen saturation 97%. HEENT: Pupils are equal and reactive. Oropharynx is clear. NECK: Supple. PULMONARY: Chest reveals a prolonged expiratory phase without wheezing or rhonchi. CARDIAC: Distant heart sounds. Normal S1, S2. GASTROINTESTINAL: The abdomen is obese and soft. EXTREMITIES: The extremities reveal trace edema. LABORATORY DATA: Arterial blood gas on mechanical ventilation reveals a pH of 7.38, pCO2 of 49, and pO2 of 164. Chest x-ray reveals mild vascular congestion with normal heart size. IMPRESSION: A 61-year-old with chronic obstructive pulmonary disease who presented with chest pain. She had a negative stress test which is encouraging but her current respiratory failure was preceded by chest pain. I have discussed the case with Dr. Espinoza. He will reevaluate the patient and see whether the stress test may have represented diffuse vascular disease and a false negative. RECOMMENDATION: 1. Diuretic trial given mild pulmonary edema on chest x-ray today. 2. Evaluate for extubation with a spontaneous breathing trial. 3. Possible cardiac catheterization as outlined above.
[2016-12-19] MEDS: CARDIZEM PO SCH ×2 (17:48→23:30)
[2016-12-20] MEDS: DUONEB (A & A) INH SCH ×5 (03:40→20:30)
[2016-12-20] MEDS: CARDIZEM PO SCH ×4 (04:29→23:17)
[2016-12-20 04:50] LABS: BLOOD TYPE ARTERIAL; SAMPLE BLOOD
[2016-12-20 04:55] LABS: ALLEN TEST YES; BE 7.5 mmoll (-3.0-3.0); DRAW SITE R RADIAL; PCO2(98.6) 50 mmHg (35-45); PO2(98.6) 80 mmHg (60-100); pH(98.6) 7.43 (7.35-7.45)
[2016-12-20 04:57] LABS: MODALITY COOL AEROSOL
[2016-12-20 05:08] LABS: MANUAL DIFF NEEDED? NO
[2016-12-20 05:12] LABS: BASO% 0.3 % (0.0-0.8); EOS# 2.87 X1000 (0.0-0.7); EOS% 18.1 % (0.0-10.0); HEMATOCRIT 37.8 % (37.0-47.0); HEMOGLOBIN 12.2 g/dL (12.0-16.0); IMM GRAN# 0.07 X1000 (0.0-0.04); IMM GRAN% 0.4 % (0.0-0.5); LYMPH# 2.37 X1000 (1.2-3.4); LYMPH% 14.9 % (20.5-51.1); MCH 29.5 PG (27-31); MCHC 32.3 g/dL (33-37); MCV 91.3 FL (81-99); MONO# 1.25 X1000 (0.11-0.59); MONO% 7.9 % (1.7-9.3); MPV 10.5 FL (7.4-10.4); NEUT% 58.4 % (42.2-75.2); PLT 316 X1000 (130-400); RBC 4.14 XMIL (4.2-5.4)
[2016-12-20 06:05] LABS: AGAP 13; BUN 13 mg/dL (8-22); CALCIUM 8.5 mg/dL (8.8-10.2); CHLORIDE 99 mmol/L (98-107); COSMO 284; MAGNESIUM 1.8 mg/dL (1.5-2.7); POTASSIUM 3.3 mmol/L (3.5-5.1); SODIUM 142 mmol/L (136-145); TCO2 30 mmol/L (25-35)
[2016-12-20] MEDS: HUMULIN R SUBQ SCH ×4 (06:09→22:11)
--- NOTE | 2016-12-20 06:14 | EKG Report ---
Test Performed on : 12/19/2016 3:18:53 PM Test Reason : NO Order in Rapt Blood Pressure : / mmHG Vent. Rate : 130 BPM Atrial Rate : 107 BPM P-R Int : 000 ms QRS Dur : 068 ms QT Int : 296 ms P-R-T Axes : 000 017 020 degrees QTc Int : 435 ms Atrial fibrillation. with rapid ventricular response. with premature ventricular or aberrantly conduc shani complexes. ST & T wave abnormality, consider anterior ischemia Abnormal ECG When compared with ECG of 18-DEC-2016 07:34, (Unconfirmed) Atrial fibrillation. has replaced Sinus rhythm. ST now depressed in Inferior leads ST now depressed in Anterolateral leads Confirmed by Theresa OLIVARES, Davon Sales ([id number]) on 12/20/2016 5:22:56 PM
[2016-12-20] MEDS ORDERED: KLOR-CON PO ONE (06:32)
--- NOTE | 2016-12-20 07:05 | PROGRESS NOTE ---
DATE: 12/20/2016 SUBJECTIVE: Ms. Medel is feeling better. The patient was extubated yesterday. No typical chest pain. She does feel mild short of breath, cough, no expectoration. No high-grade fever or chills. The patient is at times tachycardic and tachypneic. No nausea or vomiting. The patient is status post respiratory arrest. Known case of advanced COPD, chronic pain. OBJECTIVE: Her vital signs noted. Neck supple. No JVD. Lungs: Bibasilar crepitations. Occasional wheezing. CVS: S1 and S2 heard. At times, tachycardia. Abdomen soft, globular. Bowel sounds present. Extremities: No cyanosis, clubbing, edema. RADIO ELECTRICIAN: Alert, awake, able to move all 4 limbs. Answering questions fairly well. CONSIDERATION: 1. Respiratory arrest. She was on mechanical ventilation. Status post extubation doing well. 2. Lower respiratory tract infection, on Rocephin. 3. Chronic pain. 4. Atrial fibrillation. 5. Gastritis and reflux disease. PLAN: We will continue GI and DVT prophylaxis. The patient was started on Cardizem. I am going to resume some of her antidepressant to prevent withdrawal. Close observation. I appreciate Cardiology and Pulmonary help managing this patient.
[2016-12-20] MEDS ORDERED: MAGNESIUM SULFATE 2 GM/S.W.I. 50 ML IV ONE (07:55)
--- NOTE | 2016-12-20 07:57 | Diag Imaging Result Document ---
PROCEDURE NAME: CHEST-1 VIEW - 12/20/2016 AP PORTABLE CHEST: TIME: 0525 hours. FINDINGS: The lungs are better expanded than they were on 12/19/2016. The endotracheal tube has been removed. IMPRESSION: Improved expansion of the lungs. Otherwise, no significant change.
[2016-12-20] MEDS ORDERED: COMBIVENT RESPIMAT INHALER INH SCH (08:00)
[2016-12-20] MEDS: ROCEPHIN 1 GM/NS 50 ML IV SCH (08:27)
[2016-12-20] MEDS: PROTONIX IV SCH (08:27)
[2016-12-20] MEDS: NS 1,000 ML IV SCH (08:27)
[2016-12-20] MEDS: CYMBALTA PO SCH (08:27)
[2016-12-20] MEDS: SODIUM CHLORIDE 0.9% INJ SCH (08:27)
[2016-12-20] MEDS: LOVENOX SUBQ SCH (08:29)
--- NOTE | 2016-12-20 08:39 | PROGRESS NOTE ---
DATE: 12/20/2016 SUBJECTIVE: Ms. Medel reports she is doing well this morning. She has no complaints. Breathing seems to be stable. OBJECTIVE: Vital Signs: She is afebrile. Heart rate of 95, blood pressure 139/62. General: Generally she is in no acute distress. Cardiovascular: She is in a regular rate and rhythm. Telemetry currently shows sinus rhythm. Chest: Her chest exam sounds clear. No increased work of breathing. Abdomen: Her abdomen is soft and nontender. Skin exam: Warm and dry throughout without any rashes PERTINENT DATA: White count is 15.8, her hematocrit is 37.8, platelet count is 316. Sodium is 142, potassium 3.3, BUN 13, creatinine 0.7. Magnesium 1.8. ASSESSMENT: Respiratory arrest. PLAN: We will likely proceed with cardiac catheterization early next week secondary to the patient's sudden respiratory failure that does not seem to be adequately explained by her pulmonary findings, nor does it seem to be explained by the recent normal nuclear stress or echo. Again, we will likely proceed with this early next week. She was initiated on diltiazem yesterday for atrial fibrillation that was at a somewhat elevated rate. We will need to consider long-term anticoagulation after the catheterization is performed depending on the results.
[2016-12-20] MEDS: LASIX IV SCH ×2 (10:05→16:59)
[2016-12-20] MEDS: LIPITOR PO SCH (20:00)
[2016-12-20] MEDS: ADVAIR 250/50 DISKUS INH SCH (20:30)
[2016-12-21] MEDS: DUONEB (A & A) INH SCH ×5 (03:21→20:33)
[2016-12-21] MEDS: CARDIZEM PO SCH ×4 (05:10→23:17)
[2016-12-21 05:27] LABS: BASO% 0.2 % (0.0-0.8); EOS# 3.74 X1000 (0.0-0.7); EOS% 26.6 % (0.0-10.0); HEMATOCRIT 40.8 % (37.0-47.0); HEMOGLOBIN 13.1 g/dL (12.0-16.0); IMM GRAN# 0.03 X1000 (0.0-0.04); IMM GRAN% 0.2 % (0.0-0.5); LYMPH# 1.82 X1000 (1.2-3.4); LYMPH% 12.9 % (20.5-51.1); MANUAL DIFF NEEDED? YES; MCH 29.2 PG (27-31); MCHC 32.1 g/dL (33-37); MCV 91.1 FL (81-99); MONO# 0.83 X1000 (0.11-0.59); MONO% 5.9 % (1.7-9.3); MPV 10.4 FL (7.4-10.4); NEUT% 54.2 % (42.2-75.2); PLT 363 X1000 (130-400); RBC 4.48 XMIL (4.2-5.4)
[2016-12-21 05:33] LABS: MAGNESIUM 2.4 mg/dL (1.5-2.7)
[2016-12-21 05:37] LABS: BANDS 2 % (0-1); EOS 16 % (1-10); LARGE PLATELETS 1+; LYMPHS 12 % (21-51)
[2016-12-21 05:38] LABS: AGAP 15; ALBUMIN 3.9 g/dL (3.5-5.0); ALKALINE PHOSPHATASE 131 U/L (32-104); BUN 20 mg/dL (8-22); CHLORIDE 96 mmol/L (98-107); COSMO 283; GOT 32 U/L (10-30); GPT 34 U/L (10-36); POTASSIUM 3.4 mmol/L (3.5-5.1); SODIUM 140 mmol/L (136-145); TCO2 29 mmol/L (25-35); TOTAL BILIRUBIN 0.47 mg/dL (0.20-1.00); TOTAL PROTEIN 7.4 g/dL (6.3-8.3)
[2016-12-21] MEDS: HUMULIN R SUBQ SCH ×4 (06:09→20:19)
[2016-12-21] MEDS: ADVAIR 250/50 DISKUS INH SCH ×3 (07:58→20:35)
[2016-12-21] MEDS ORDERED: KLOR-CON PO ONE (08:22)
--- NOTE | 2016-12-21 08:29 | Diag Imaging Result Document ---
PROCEDURE NAME: CHEST-1 VIEW - 12/21/2016 PORTABLE CHEST: COMPARISON: 12/20/2016. FINDINGS: Heart size is normal. There has been development of mild subsegmental atelectasis at the lateral right base. There are no other acute changes identified. There is no dense consolidation, pleural effusion, or pneumothorax seen. IMPRESSION: Mild atelectasis at the lateral right base. No other acute changes.
--- NOTE | 2016-12-21 09:08 | PROGRESS NOTE ---
DATE: 12/21/2016 SUBJECTIVE: Ms. Medel is doing better. She does feel weak. No typical chest pain or palpitation. Denied any nausea or vomiting. The patient's oral intake is fair. Denied any diarrhea. No high- grade fever or chills. OBJECTIVE: Vital Signs: Her vital signs noted. Neck: Supple. No JVD. Lungs: Bilateral good air entry present. Occasional wheezing. CVS: S1 and S2 heard. Abdomen: Soft, globular. Bowel sounds present. Extremities: No cyanosis, clubbing. No acute DVT. BEHAVIORAL SCIENCE CHAIR: Alert, awake, able to move all 4 limbs. Answering questions fairly well. LAB DATA: Lab data done today: Leukocyte count 14.08, hemoglobin 13.1, hematocrit 40.8, platelet count 363. Electrolytes still revealed hypokalemia. BUN was 20, creatinine 0.6, alkaline phosphatase 131. CONSIDERATION: 1. Acute respiratory failure. The patient does have significant eosinophilia. I offered patient prednisone. The patient is reluctant to take any steroid. We will wait and follow patient clinically. Take expert opinion of Dr. Carter about steroid. 2. Sudden respiratory arrest. 3. Chronic obstructive pulmonary disease. 4. Hyperlipidemia. I resumed her Lipitor. 5. Insulin-dependent diabetes mellitus on sliding scale insulin. 6. Hypertension. 7. Chronic pain. Labs and medication noted. Overall plan discussed with the patient and she is in agreement.
[2016-12-21] MEDS: CYMBALTA PO SCH (09:30)
[2016-12-21] MEDS: PROTONIX IV SCH (09:31)
[2016-12-21] MEDS: SODIUM CHLORIDE 0.9% INJ SCH (09:31)
[2016-12-21] MEDS: ROCEPHIN 1 GM/NS 50 ML IV SCH (09:31)
[2016-12-21] MEDS: LOVENOX SUBQ SCH (10:48)
--- NOTE | 2016-12-21 12:39 | PROGRESS NOTE ---
DATE: 12/21/2016 CHIEF COMPLAINT: Shortness of breath. SUBJECTIVE: Mrs. Medel is feeling better. She is not having any chest pain. Her breathing has improved. Rhythm is sinus. OBJECTIVE: Vital signs: Her blood pressure right now is 111/72, temperature is 97.9, pulse 82, respirations 16. General: She is awake, alert, in no distress. HEENT: Unremarkable. Chest: Markedly diminished breath sounds with some end-expiratory wheezing. Cardiac: Heart sounds regular and rhythmic, no gallop or murmur. Abdomen: Nontender. Extremities: Good pulses, no edema. Neurological: She moves four extremities. BLOOD WORK: White count is 14,000, hemoglobin 13.2, hematocrit 40.8. She has 70% neutrophils, 2% bands. Sodium 140, potassium 3.4, BUN 20, creatinine 0.6. She has been given some potassium supplements this morning. IMPRESSION: 1. Patient with increasing dyspnea. Probably this is all truly related to advanced COPD. However, there is concern that she could have concomitant coronary heart disease that was missed by a nuclear perfusion stress test that was done in the past, and that is a valid point. 2. Hypokalemia. 3. Possible bronchitis. 4. History of hypertension, history of diabetes mellitus type 2, and former smoker. RECOMMENDATION: From cardiology viewpoint, the patient seems to be stable. Drs. Carter and Alexis have agreed to pursue invasive cardiac evaluation for a definitive diagnosis in her case. We will follow her course over the weekend, and further intervention will depend on response to therapy. Thank you again for the opportunity to participate in her evaluation. Best regards.
[2016-12-21] MEDS: LIPITOR PO SCH (20:20)
[2016-12-22] MEDS: DUONEB (A & A) INH SCH ×7 (03:42→23:15)
[2016-12-22 05:34] LABS: BASO% 0.2 % (0.0-0.8); EOS# 3.99 X1000 (0.0-0.7); EOS% 29.9 % (0.0-10.0); HEMATOCRIT 38.5 % (37.0-47.0); HEMOGLOBIN 12.4 g/dL (12.0-16.0); IMM GRAN# 0.04 X1000 (0.0-0.04); IMM GRAN% 0.3 % (0.0-0.5); LYMPH# 1.91 X1000 (1.2-3.4); LYMPH% 14.3 % (20.5-51.1); MANUAL DIFF NEEDED? YES; MCH 29.4 PG (27-31); MCHC 32.2 g/dL (33-37); MCV 91.2 FL (81-99); MPV 10.2 FL (7.4-10.4); NEUT% 46.3 % (42.2-75.2); PLT 382 X1000 (130-400); RBC 4.22 XMIL (4.2-5.4)
[2016-12-22] MEDS: CARDIZEM PO SCH ×4 (05:44→23:25)
[2016-12-22 05:51] LABS: EOS 14 % (1-10); LYMPHS 12 % (21-51); MONO 2 % (1-9)
[2016-12-22 05:53] LABS: AGAP 12; ALBUMIN 3.8 g/dL (3.5-5.0); ALKALINE PHOSPHATASE 124 U/L (32-104); BUN 20 mg/dL (8-22); CHLORIDE 98 mmol/L (98-107); COSMO 281; GOT 22 U/L (10-30); GPT 31 U/L (10-36); POTASSIUM 3.7 mmol/L (3.5-5.1); SODIUM 139 mmol/L (136-145); TCO2 29 mmol/L (25-35); TOTAL BILIRUBIN 0.55 mg/dL (0.20-1.00)
[2016-12-22] MEDS: HUMULIN R SUBQ SCH ×4 (06:32→21:56)
--- NOTE | 2016-12-22 07:16 | Diag Imaging Result Document ---
PROCEDURE NAME: CHEST-1 VIEW - 12/22/2016 PORTABLE CHEST: COMPARISON: Compared to 12/21/2016. FINDINGS: The lungs are well expanded. The heart is not enlarged. The vessels are not distended. No pneumonia. No pleural effusions identified. IMPRESSION: Negative chest.
[2016-12-22] MEDS: ADVAIR 250/50 DISKUS INH SCH ×2 (07:47→19:34)
--- NOTE | 2016-12-22 08:10 | PROGRESS NOTE ---
DATE: 12/22/2016 SUBJECTIVELY: Ms. Medel is doing better. The patient had an episode of nosebleed this morning, which did stop spontaneously. Patient is on Lovenox for DVT prophylaxis. We will continue monitoring the patient. She denied any typical chest pain. Complaining of aching pain in the arm and the leg. The patient was on pain medication before. I am going to resume it. Mild cough. No expectoration. Denied any fever or chills. No nausea or vomiting. PHYSICAL EXAMINATION: Vital Signs: Her vital signs reviewed. Neck: Supple. No JVD. Lungs: Bibasilar crepitations. Heart: S1 and S2 heard. Abdomen: Soft, globular. Bowel sounds present. EMBOSSED OR IMPRESSED LETTERING PAINTER: Alert, awake. Able to move all 4 limbs. LAB DATA: Done today, WBC count 13.35, hemoglobin 12.4, hematocrit 38.5, platelet count 382,000. The patient still has eosinophilia. Electrolytes: Potassium was 3.7. PLAN: Plan is to check appropriate labs tomorrow. Internal Grinder and surfacing technician following patient with us. Continue rest of the treatment and close observation. Fall precaution. Out of bed to chair. Ambulate the patient. Overall plan discussed with the patient and she is in agreement.
[2016-12-22] MEDS: NORCO-7.5 PO PRN ×2 (08:49→20:25)
[2016-12-22] MEDS: CYMBALTA PO SCH (08:49)
[2016-12-22] MEDS: LOVENOX SUBQ SCH (08:50)
[2016-12-22] MEDS: SODIUM CHLORIDE 0.9% INJ SCH (08:50)
[2016-12-22] MEDS: ROCEPHIN 1 GM/NS 50 ML IV SCH (08:50)
[2016-12-22] MEDS: PROTONIX IV SCH (08:50)
[2016-12-22] MEDS ORDERED: POTASSIUM CHLORIDE 20% LIQUID PO ONE (09:23)
--- NOTE | 2016-12-22 10:09 | PROGRESS NOTE ---
DATE: 12/22/2016 REASON FOR CONSULTATION: Cardiac arrest, shortness of breath. SUBJECTIVE: Mrs. Medel is feeling substantially better. She is sitting upright, eating breakfast. She has no complaints. OBJECTIVE: Her blood pressure right now is 138/91, temperature 98 degrees, pulse 82, respirations 17. General: She is obese, sitting upright, in no distress. HEENT: Unremarkable. Chest: Diffusely diminished breath sounds bilaterally. Cardiac: Heart sounds are regularly rhythm. No gallop or murmur. Abdomen: Obese, nontender. Extremities: Show no edema. Neurologic: She moves 4 extremities and follows commands. DIAGNOSTIC DATA: Her most recent chemistry was from this morning. Sodium is 139, potassium 3.7, BUN 20, creatinine 0.7. Her albumin is normal. AST and ALT are normal. Her white count 13,000, hemoglobin 12.4, hematocrit 38.5. Of note, she has 14% eosinophils. IMPRESSION: 1. Patient who presented with exacerbation of shortness of breath. 2. This is really exacerbation of chronic chronic obstructive pulmonary disease. She has extensive emphysematous changes on CT scan of her chest. Of note, her CT of the chest did not show coronary calcifications. 3. Cardiac arrest, suspected to be in part related to cardiac condition. 4. Borderline hypokalemia. 5. Bronchitis, possibly acute. 6. Hypertension. RECOMMENDATIONS: At this point in time, we will let Dr. Espinoza and Dr. Carter decide on further management of the dyspnea and suspected coronary heart disease. They have suggested to pursue heart catheterization for diagnostic purposes only. At this time, she is not on any meaningful treatment for coronary heart disease, other than the cholesterol lowering medications. Further intervention will be decided by Dr. Espinoza. [facility]
[2016-12-22] MEDS: LIPITOR PO SCH (20:25)
[2016-12-23] MEDS: DUONEB (A & A) INH SCH ×6 (03:20→22:50)
[2016-12-23] MEDS: CARDIZEM PO SCH ×4 (04:30→23:31)
[2016-12-23 05:42] LABS: INR 1.09; PROTIME 11.6 Seconds (9.2-11.7); PTT 27.5 Seconds (22.0-36.0)
[2016-12-23 05:45] LABS: AGAP 12; ALBUMIN 3.8 g/dL (3.5-5.0); ALKALINE PHOSPHATASE 122 U/L (32-104); BUN 16 mg/dL (8-22); CALCIUM 9.1 mg/dL (8.8-10.2); CHLORIDE 101 mmol/L (98-107); COSMO 285; GOT 17 U/L (10-30); GPT 24 U/L (10-36); POTASSIUM 4.4 mmol/L (3.5-5.1); SODIUM 142 mmol/L (136-145); TCO2 29 mmol/L (25-35); TOTAL BILIRUBIN 0.48 mg/dL (0.20-1.00)
[2016-12-23] MEDS ORDERED: LASIX IV ONE (06:09)
[2016-12-23 06:31] LABS: BASO% 0.3 % (0.0-0.8); EOS# 3.85 X1000 (0.0-0.7); EOS% 30.9 % (0.0-10.0); HEMATOCRIT 37.3 % (37.0-47.0); HEMOGLOBIN 12.1 g/dL (12.0-16.0); IMM GRAN# 0.04 X1000 (0.0-0.04); IMM GRAN% 0.3 % (0.0-0.5); LYMPH# 2.16 X1000 (1.2-3.4); LYMPH% 17.3 % (20.5-51.1); MANUAL DIFF NEEDED? YES; MCH 29.7 PG (27-31); MCHC 32.4 g/dL (33-37); MCV 91.4 FL (81-99); MONO# 1.08 X1000 (0.11-0.59); MONO% 8.7 % (1.7-9.3); MPV 10.2 FL (7.4-10.4); NEUT% 42.5 % (42.2-75.2); PLT 399 X1000 (130-400); RBC 4.08 XMIL (4.2-5.4)
--- NOTE | 2016-12-23 06:31 | PROGRESS NOTE ---
DATE: 12/23/2016 SUBJECTIVE: Ms. Stearns is doing better. Mild cough. Minimally increased shortness of breath. She had low-grade fever of 100.3. No dysuria. Denied any chest pain. No nausea or vomiting. No typical chest pain. The patient is status post respiratory arrest. She does have COPD. OBJECTIVE: Vital signs reviewed. Neck: Supple. No JVD. Lungs: Bibasilar few crepitations. Occasional wheezing. CVS: S1 and S2 heard. Abdomen: Soft, globular. Bowel sounds present. Extremities: No cyanosis or clubbing. No acute DVT. INSTALLER METAL FLOORING: Alert, awake, and oriented x3. No focalities. CONSIDERATION: 1. COPD exacerbation. The patient had fever. Blood work ordered this morning is pending. I am going to get chest x-ray and urinalysis to look for source of fever. 2. Acute respiratory failure. 3. Paroxysmal atrial fibrillation. 4. Hypertension. 5. Hyperlipidemia. PLAN: The patient is on broad-spectrum antibiotics. We will continue current treatment. I am going to give her IV Lasix. Continue rest of the treatment and close observation. Overall plan discussed with the patient. She is in agreement. Dr. Espinoza is going to discuss whether she should have arteriogram or not.
[2016-12-23 06:41] LABS: EOS 30 % (1-10); LYMPHS 30 % (21-51); MONO 8 % (1-9)
[2016-12-23] MEDS: HUMULIN R SUBQ SCH ×4 (07:02→23:25)
--- NOTE | 2016-12-23 07:32 | Diag Imaging Result Document ---
PROCEDURE NAME: CHEST-PORTABLE - 12/23/2016 AP PORTABLE CHEST, 12/23/2016 AT 0615 HOURS: FINDINGS: Considering differences in inspiration and technique, there has been no significant change since the previous study of 12/22/2016. IMPRESSION: Stable chest.
[2016-12-23 07:50] LABS: URINE MICRO REVIEW NEEDED? NO; URINE SOURCE CATH
[2016-12-23] MEDS: ADVAIR 250/50 DISKUS INH SCH ×2 (07:51→19:23)
[2016-12-23 07:58] LABS: BILIRUBIN URINE NEGATIVE (NEGATIVE); BLOOD URINE SMALL (NEGATIVE); COLOR YELLOW; GLUCOSE URINE NEGATIVE (NEGATIVE); LEUKOCYTES URINE SMALL (NEGATIVE); NITRITE URINE NEGATIVE (NEGATIVE); PH URINE 5.5; PROTEIN URINE TRACE mg/dL (NEGATIVE); SP GRAVITY URINE 1.021; TURBIDITY URINE CLEAR (CLEAR); UROBILINOGEN URINE NORMAL (NORMAL)
[2016-12-23 07:59] LABS: UR EPITHELIAL CELLS <10 /HPF (<10); URINE BACTERIA NEGATIVE /HPF; URINE CULTURE NEEDED? YES; URINE WBC <10 /HPF (<10)
--- NOTE | 2016-12-23 08:04 | EKG Report ---
Test Performed on : 12/23/2016 07:16:37 AM Test Reason : cardiac arrest/dyspnea Blood Pressure : / mmHG Vent. Rate : 084 BPM Atrial Rate : 084 BPM P-R Int : 134 ms QRS Dur : 066 ms QT Int : 398 ms P-R-T Axes : 021 005 030 degrees QTc Int : 470 ms Normal sinus rhythm. Nonspecific ST and T wave abnormality Prolonged QT Abnormal ECG When compared with ECG of 19-DEC-2016 15:18, Sinus rhythm. has replaced Atrial fibrillation. Vent. rate has decreased BY 46 BPM Nonspecific T wave abnormality has replaced inverted T waves in Anterior leads Confirmed by Theresa OLIVARES, Davon Sales ([id number]) on 12/23/2016 4:27:17 PM
[2016-12-23] MEDS: CYMBALTA PO SCH (08:33)
[2016-12-23] MEDS: SODIUM CHLORIDE 0.9% INJ SCH (08:34)
[2016-12-23] MEDS: ROCEPHIN 1 GM/NS 50 ML IV SCH (08:34)
[2016-12-23] MEDS: PROTONIX IV SCH (08:34)
[2016-12-23] MEDS: LOVENOX SUBQ SCH (08:34)
[2016-12-23] MEDS: NORCO-7.5 PO PRN ×2 (11:58→21:32)
--- NOTE | 2016-12-23 13:14 | PROGRESS NOTE ---
DATE: 12/23/2016 SUBJECTIVE: Ms. Medel reports she is doing well. No chest pain. Her shortness of breath has improved, although continues with minimal exertion. PHYSICAL EXAMINATION: Vital signs: She is afebrile. Heart rate of 98, blood pressure of 131/86. General: She is in no acute distress. Cardiovascular: She is in a regular rate and rhythm. She has no murmur. She has no S3. Chest Exam: She has minimal bilateral end-expiratory wheezes. No increased work of breathing. Abdomen: Soft, nontender. PERTINENT DATA: White count is 12.4, her hematocrit is 37, platelet count is 399,000. Her sodium is 142, potassium 4.4, BUN 16, creatinine 0.7. ASSESSMENT: Respiratory failure, now resolved. PLAN: We will likely proceed with cardiac catheterization tomorrow. Risks, benefits, and alternatives have been explained to the patient and she agrees to proceed. At this point I will add in an aspirin to her regimen. We will give a dose today. We will likely proceed with cath around 12:30 tomorrow.
[2016-12-23] MEDS: ASPIRIN PO SCH (14:03)
[2016-12-23] MEDS: LIPITOR PO SCH (21:32)
[2016-12-24] MEDS: DUONEB (A & A) INH SCH ×6 (02:58→23:40)
[2016-12-24] MEDS: CARDIZEM PO SCH ×3 (04:34→16:52)
[2016-12-24] MEDS: HUMULIN R SUBQ SCH ×4 (06:11→19:59)
[2016-12-24] MEDS: ADVAIR 250/50 DISKUS INH SCH ×2 (07:28→19:45)
[2016-12-24] MEDS: PROTONIX IV SCH (08:22)
[2016-12-24] MEDS: ASPIRIN PO SCH (08:22)
[2016-12-24] MEDS: SODIUM CHLORIDE 0.9% INJ SCH (08:22)
[2016-12-24] MEDS: CYMBALTA PO SCH (08:22)
[2016-12-24] MEDS: LOVENOX SUBQ SCH (08:23)
--- NOTE | 2016-12-24 08:34 | PROGRESS NOTE ---
DATE: 12/24/2016 SUBJECTIVE: Ms. Medel is doing better. Her breathing is improving. The patient is scheduled to have cardiac cath today to evaluate her acute respiratory failure. No typical chest pain. She does have mild cough. The patient is on IV antibiotics. Evaluated by Dr. Carter yesterday. Recommendations reviewed. Her EKG done yesterday reviewed. It did show prolonged QT. I am going to check magnesium level tomorrow. OBJECTIVE: Vital signs: Noted. Neck: Supple. No JVD. Lungs: Bibasilar crepitation. Heart: S1 and S2 heard. Abdomen: Soft, globular. Bowel sounds present. Extremities: No acute DVT clinically. CIRCUS PERFORMER: Alert, awake. Answering questions fairly well. CONSIDERATION: 1. Acute respiratory failure. 2. Chest pain, negative nuclear stress test. The patient is scheduled to have cardiac cath for definitive coronary anatomy. Risks and benefits of the test explained to the patient. 3. Chronic pain. 4. Hyperlipidemia. 5. Paroxysmal atrial fibrillation. PLAN: I am going to discontinue the Morris catheter. Continue the rest of the treatment. After reviewing cardiac cath we will make necessary recommendations.
[2016-12-24 09:12] LABS: BASO% 0.3 % (0.0-0.8); EOS# 3.21 X1000 (0.0-0.7); EOS% 22.7 % (0.0-10.0); HEMATOCRIT 39.4 % (37.0-47.0); IMM GRAN# 0.08 X1000 (0.0-0.04); IMM GRAN% 0.6 % (0.0-0.5); LYMPH# 1.97 X1000 (1.2-3.4); LYMPH% 13.9 % (20.5-51.1); MANUAL DIFF NEEDED? YES; MCH 29.6 PG (27-31); MCV 89.7 FL (81-99); MONO# 1.29 X1000 (0.11-0.59); MONO% 9.1 % (1.7-9.3); MPV 10.1 FL (7.4-10.4); NEUT% 53.4 % (42.2-75.2); PLT 445 X1000 (130-400); RBC 4.39 XMIL (4.2-5.4)
[2016-12-24 09:22] LABS: INR 1.05; PROTIME 11.1 Seconds (9.2-11.7)
[2016-12-24 09:32] LABS: EOS 22 % (1-10); LYMPHS 15 % (21-51); MONO 5 % (1-9)
[2016-12-24 09:55] LABS: AGAP 17; BUN 18 mg/dL (8-22); CALCIUM 9.5 mg/dL (8.8-10.2); CHLORIDE 95 mmol/L (98-107); COSMO 279; POTASSIUM 3.9 mmol/L (3.5-5.1); SODIUM 138 mmol/L (136-145); TCO2 26 mmol/L (25-35)
[2016-12-24] MEDS: ROCEPHIN 1 GM/NS 50 ML IV SCH (11:04)
[2016-12-24] MEDS ORDERED: HEPARIN 1000 UNITS/NS 1,000 ML ONE (12:37)
[2016-12-24] MEDS ORDERED: CLAVE TWINSITE 32 IN 11959 ONE (13:18)
[2016-12-24] MEDS ORDERED: CLAVE PUMP SET NO FILTER 12260 ONE (13:18)
[2016-12-24] MEDS ORDERED: NS 1,000 ML ONE (13:18)
[2016-12-24] MEDS ORDERED: VERSED ONE (13:19)
[2016-12-24] MEDS ORDERED: DILAUDID ONE (13:19)
--- NOTE | 2016-12-24 14:34 | CARDIAC CATH REPORT ---
PROCEDURE NAME: - INDICATION: Respiratory failure. PROCEDURES PERFORMED: 1. Left heart catheterization. 2. Selective coronary angiography. PROCEDURE IN DETAIL: Ms. Medel was brought to catheterization laboratory in fasting state. Informed consent was obtained. She was prepped and draped in usual sterile fashion. She was anesthetized with the lidocaine and a 5-[place] sheath was placed in the right radial artery via true Seldinger technique. Radial cocktail was administered. Catheters were introduced. Hemodynamic measurements made in the ascending thoracic aorta. Coronary angiography was performed in multiple views using JL 3.5 and JR4 diagnostic catheters. At conclusion of procedure, the TR band was left inflated. All catheters were removed. TR band was left inflated at 13 mL of air. There was 5 mL of blood loss. Total of 60 mL of IV contrast. No apparent complications. FINDINGS: 1. The left main appears normal. 2. Left anterior descending originates from the left main. Minimal luminal irregularities noted in the proximal vessel. Mid and distal vessel appear normal. 3. Circumflex originates from the left main. Appears normal throughout its course. 4. Right coronary artery appears normal throughout its course. It is a dominant vessel. 5. Aortic blood pressure 134/86. 6. Left ventricle pressure is 132/5 with an LVEDP of 12. ASSESSMENT: Ms. Ruchi Medel is a 61-year-old white female who experienced an episode of respiratory failure with pulmonary edema. There was a concern for possible balanced ischemia as her recent nuclear scan was normal and her respiratory failure seemed out of proportion to her lung disease. PLAN: At this point she has no flow-limiting coronary lesions. She has minimal luminal irregularities noted in the proximal left anterior descending. She has a normal LVEDP. She is safe to go home from a cardiovascular standpoint. I will initiate Eliquis 5 mg b.i.d. starting tomorrow given that she had episodes of atrial fibrillation during this hospitalization and has an elevated [id number] score. She is in sinus rhythm presently. She will return to the floor for usual postprocedure convalescence.
[2016-12-24] MEDS: NORCO-7.5 PO PRN (19:56)
[2016-12-24] MEDS: LIPITOR PO SCH ×2 (19:56→23:10)
[2016-12-24] MEDS ORDERED: CARDIZEM PO ONE (23:30)
[2016-12-25] MEDS: DUONEB (A & A) INH SCH ×2 (02:52→07:58)
[2016-12-25] MEDS: HUMULIN R SUBQ SCH (06:20)
[2016-12-25 06:21] LABS: AGAP 16; ALBUMIN 3.4 g/dL (3.5-5.0); ALKALINE PHOSPHATASE 115 U/L (32-104); BUN 17 mg/dL (8-22); CALCIUM 9.1 mg/dL (8.8-10.2); CHLORIDE 97 mmol/L (98-107); COSMO 280; GOT 21 U/L (10-30); GPT 20 U/L (10-36); MAGNESIUM 2.1 mg/dL (1.5-2.7); POTASSIUM 4.3 mmol/L (3.5-5.1); SODIUM 139 mmol/L (136-145); TCO2 26 mmol/L (25-35); TOTAL BILIRUBIN 0.44 mg/dL (0.20-1.00); TOTAL PROTEIN 6.8 g/dL (6.3-8.3)
[2016-12-25 06:33] LABS: BASO% 0.3 % (0.0-0.8); EOS# 2.96 X1000 (0.0-0.7); EOS% 28.3 % (0.0-10.0); HEMATOCRIT 36.2 % (37.0-47.0); HEMOGLOBIN 11.8 g/dL (12.0-16.0); IMM GRAN# 0.05 X1000 (0.0-0.04); IMM GRAN% 0.5 % (0.0-0.5); LYMPH# 1.49 X1000 (1.2-3.4); LYMPH% 14.2 % (20.5-51.1); MANUAL DIFF NEEDED? YES; MCH 29.6 PG (27-31); MCHC 32.6 g/dL (33-37); MCV 90.7 FL (81-99); MONO# 0.95 X1000 (0.11-0.59); MONO% 9.1 % (1.7-9.3); MPV 10.5 FL (7.4-10.4); NEUT% 47.6 % (42.2-75.2); PLT 383 X1000 (130-400); RBC 3.99 XMIL (4.2-5.4)
[2016-12-25] MEDS ORDERED: CARDIZEM CD PO ONE (06:55)
[2016-12-25] MEDS ORDERED: PRILOSEC PO SCH (07:00)
--- NOTE | 2016-12-25 07:39 | DISCHARGE SUMMARY ---
ADMISSION DATE: 12/16/2016 DISCHARGE DATE: FINAL DISCHARGE DIAGNOSES: 1. Acute respiratory failure. 2. Hypertension. 3. Hyperlipidemia. 4. Sdf-icmrhzp-ohmimlcdn diabetes mellitus. 5. Chronic pain. 6. Situational depression. 7. Noncritical coronary artery disease. 8. Gastritis. 9. Reflux disease. 10. Chest pain. HISTORY OF PRESENT ILLNESS: Ms. Medel is a 61-year-old, white female patient admitted with chest pain which has many typical and few atypical features. The patient had significant multiple risk factors for coronary artery disease. I evaluated the patient in my office and admitted for further care. The patient underwent nuclear stress test and echocardiogram. Her nuclear stress test was negative. Echocardiogram showed normal ventricular systolic function, no diastolic dysfunction, mild degree of mitral, tricuspid and pulmonic regurgitation, and no pericardial effusion, masses or thrombosis. The patient developed some symptoms suggestive of bronchitis. I gave her Solu-Medrol and Rocephin. The patient developed sudden respiratory arrest requiring intubation and mechanical ventilation. It was very difficult to attribute the cause of her respiratory arrest. At that time, the patient received Solu-Medrol. The patient has had prednisone many, many times in the past. Cardiology and pulmonary consults were obtained. The patient was successfully extubated within a few days. The patient underwent angiogram and it did not reveal significant coronary artery disease. The patient was treated with IV antibiotics. Her clinical condition stabilized and improved. The patient had a renal artery Doppler done and it was grossly normal. Her clinical condition stabilized and improved. I am planning to discharge her home today. Her other problem was atrial fibrillation with rapid ventricular response at the time of her respiratory arrest. Patient was started on Eliquis and Cardizem which was changed to long-acting Cardizem today and discussed risk of bleeding and precautions. Overall discharge condition is satisfactory. PHYSICAL EXAMINATION: Vital signs: Noted. Neck: Supple. No JVD. Lungs: Few basal crepitations. Heart: S1 and S2 heard. Abdomen: Soft, globular. Bowel sounds present. Extremities: No cyanosis or clubbing. No acute DVT. KILN LABOURER: Alert, awake. Able to move all 4 limbs. PLAN: I am going to discharge patient home on Cardizem CD and Eliquis. She will continue her Cymbalta, Lipitor and Glucophage. The patient does not want to take Klonopin or pain medication. I advised her to discuss those medications with her pain management MD. She will continue her Cymbalta. I gave her a prescription for prednisone and doxycycline as patient is going to [place] to stay with her son. I explained to the patient how to take it in case of more breathing problems. Monitor blood pressure and Accu-Cheks at home. Follow up with me in 7-10 days. Fall precautions. In case of more distress, call us back or go to emergency room. Follow up with her air hole driller and as scheduled. Continue home oxygen and bronchodilator treatment.
[2016-12-25 07:51] LABS: BANDS 1 % (0-1); EOS 17 % (1-10); LYMPHS 19 % (21-51); MONO 4 % (1-9)
[2016-12-25] MEDS: ADVAIR 250/50 DISKUS INH SCH (07:59)
[2016-12-25 08:13] VITALS: BP 90/56
[2016-12-25] MEDS: ROCEPHIN 1 GM/NS 50 ML IV SCH (08:28)
[2016-12-25] MEDS: CYMBALTA PO SCH (08:29)
[2016-12-25] MEDS: NORCO-7.5 PO PRN (08:29)
[2016-12-25] MEDS ORDERED: ELIQUIS PO SCH (09:00)
[2016-12-25] MEDS ORDERED: CARDIZEM CD PO SCH (09:00)
[2016-12-26] MEDS ORDERED: CARDIZEM CD PO SCH (09:00)
== END 2016-12-25 09:50 | disposition home or self-care (01) | DRG 286 ==
LOC: OBSVTOIN 14:37 → DIRADM 14:37 → 4N 15:36 → ICU 12-17 22:52 → 3S 12-20 14:11
PROVIDERS: ADMIT Internal Medicine; ATTEND Internal Medicine
PROC: 5A1945Z Respiratory Ventilation, 24-96 Consecutive Hours (ICD-10-PCS; principal; 2016-12-17)
PROC: 0BH17EZ Insertion of Endotracheal Airway into Trachea, Via Natural or Artificial Opening (ICD-10-PCS; 2016-12-17)
PROC: 4A023N7 Measurement of Cardiac Sampling and Pressure, Left Heart, Percutaneous Approach (ICD-10-PCS; 2016-12-24)
PROC: B2111ZZ Fluoroscopy of Multiple Coronary Arteries using Low Osmolar Contrast (ICD-10-PCS; 2016-12-24)
DX: R07.89 Other chest pain (principal); J96.00 Acute respiratory failure, unspecified whether with hypoxia or hypercapnia; J96.11 Chronic respiratory failure with hypoxia; J44.0 Chronic obstructive pulmonary disease with (acute) lower respiratory infection; J44.1 Chronic obstructive pulmonary disease with (acute) exacerbation; Z99.81 Dependence on supplemental oxygen; I25.10 Atherosclerotic heart disease of native coronary artery without angina pectoris; I10 Essential (primary) hypertension; E11.9 Type 2 diabetes mellitus without complications; G89.29 Other chronic pain; F43.21 Adjustment disorder with depressed mood; K29.70 Gastritis, unspecified, without bleeding; K21.9 Gastro-esophageal reflux disease without esophagitis; M54.2 Cervicalgia; M17.10 Unilateral primary osteoarthritis, unspecified knee; E03.9 Hypothyroidism, unspecified; E66.9 Obesity, unspecified; J31.0 Chronic rhinitis; J20.9 Acute bronchitis, unspecified; R21 Rash and other nonspecific skin eruption; E87.6 Hypokalemia; R04.0 Epistaxis; I48.0 Paroxysmal atrial fibrillation; E78.1 Pure hyperglyceridemia; Z79.899 Other long term (current) drug therapy; Z79.84 Long term (current) use of oral hypoglycemic drugs; Z79.891 Long term (current) use of opiate analgesic; Z80.1 Family history of malignant neoplasm of trachea, bronchus and lung; Z87.891 Personal history of nicotine dependence; Z68.36 Body mass index [BMI] 36.0-36.9, adult
CPT/HCPCS: 31500; 71010; 71020; 78452; 80048; 80053; 80061; 81001; 82550; 82553; 82805; 82948; 83036; 83735; 83880; 84100; 84439; 84443; 84481; 84484; 85025; 85379; 85610; 85730; 87070; 87088; 87205; 89220; 93005; 93010; 93017; 93306; 93308; 93458; 93976; 94002; 94003; 94640; 94761; 94762; A9500; C9113; J0330; J0696; J1170; J1250; J1644; J1650; J1940; J2060; J2250; J2270; J2920; J3475; J7030; Q9967; S0164

== ENCOUNTER 2018-11-16 13:56 | Observation (INO) ==
[2018-11-16 15:05] LABS: BASO# 0.03 X1000 (0.0-0.2); BASO% 0.3 % (0.0-0.8); EOS# 0.04 X1000 (0.0-0.7); EOS% 0.4 % (0.0-10.0); HEMATOCRIT 40.5 % (37.0-47.0); HEMOGLOBIN 12.7 g/dL (12.0-16.0); IMM GRAN# 0.04 X1000 (0.0-0.04); IMM GRAN% 0.4 % (0.0-0.5); LYMPH# 1.04 X1000 (1.2-3.4); LYMPH% 11.1 % (20.5-51.1); MCH 29.8 PG (27-31); MCHC 31.4 g/dL (33-37); MCV 95.1 FL (81-99); MONO# 0.48 X1000 (0.11-0.59); MONO% 5.1 % (1.7-9.3); MPV 9.9 FL (7.4-10.4); NEUT% 82.7 % (42.2-75.2); PLT 336 X1000 (130-400); RBC 4.26 XMIL (4.2-5.4); RDW 13.1 % (11.5-14.5); WBC 9.33 X1000 (4.8-10.8)
[2018-11-16 15:08] LABS: ALBUMIN 4.3 g/dL (3.5-5.0); MAGNESIUM 1.7 mg/dL (1.5-2.7); TOTAL BILIRUBIN 0.23 mg/dL (0.20-1.00); TOTAL PROTEIN 6.4 g/dL (6.3-8.3)
--- NOTE | 2018-11-16 15:27 | EKG Report ---
Test Performed on : 11/16/2018 3:23:05 PM Test Reason : CHEST PAIN Blood Pressure : / mmHG Vent. Rate : 077 BPM Atrial Rate : 077 BPM P-R Int : 152 ms QRS Dur : 070 ms QT Int : 414 ms P-R-T Axes : 027 013 008 degrees QTc Int : 468 ms Normal sinus rhythm. Nonspecific T wave abnormality Abnormal ECG When compared with ECG of 23-Dec-2016 No significant change was found Confirmed by Gina OLIVARES, Vasu Bailon ([id number]) on 11/16/2018 5:46:24 PM
--- NOTE | 2018-11-16 15:59 | Diag Imaging Result Doc PS360 ---
EXAM: CHEST-2 VIEWS 11/16/2018 HISTORY: CHEST PAIN TECHNIQUE: PA and lateral chest COMMENT: There is no evidence of acute cardiac or pulmonary disease. Compared to 04/02/2017 there has been no significant change. IMPRESSION: No evidence of acute disease. Electronically signed by John Mullins 11/16/2018 3:57 PM
[2018-11-16] MEDS: DUONEB (A & A) INH SCH ×2 (16:05→21:10)
[2018-11-16 16:13] LABS: URINE SOURCE CLEAN CATCH
[2018-11-16] MEDS ORDERED: VENTOLIN HFA INH PRN (16:27)
[2018-11-16 16:31] LABS: BILIRUBIN URINE NEGATIVE (NEGATIVE); BLOOD URINE NEGATIVE (NEGATIVE); COLOR YELLOW; GLUCOSE URINE NEGATIVE (NEGATIVE); KETONE URINE NEGATIVE (NEGATIVE); LEUKOCYTES URINE MODERATE (NEGATIVE); NITRITE URINE NEGATIVE (NEGATIVE); PH URINE 6.5; PROTEIN URINE TRACE mg/dL (NEGATIVE); SP GRAVITY URINE 1.022; TURBIDITY URINE CLEAR (CLEAR); UROBILINOGEN URINE NORMAL (NORMAL)
[2018-11-16 16:33] LABS: UR EPITHELIAL CELLS <10 /HPF (<10); URINE BACTERIA NEGATIVE /HPF; URINE RBC <10 /HPF (<10); URINE WBC <10 /HPF (<10)
[2018-11-16] MEDS: PROTONIX IV SCH (16:51)
[2018-11-16] MEDS: SODIUM CHLORIDE 0.9% INJ SCH (16:52)
--- NOTE | 2018-11-16 20:16 | HISTORY AND PHYSICAL ---
CHIEF COMPLAINT: Chest pain. A 63-year-old white female patient with multiple medical problems in the form of hypertension, hyperlipidemia, paroxysmal atrial fibrillation, COPD, morbid obesity, chronic respiratory failure. The patient was in her usual state of health. Came to the office for evaluation of chest pain. Patient describes chest pain going on for 3 to 4 days retrosternal mild to moderate lasting for few seconds to few minutes. The pain is at rest, no radiation of pain to the arm. No associated sweating. I evaluated patient in the office. Patient and family were concerned. Because of her multiple risk factors I evaluated patient, decided to admit her for further care and workup. The patient lives by herself. I was concerned. The patient denied any high-grade fever or chills. The patient was getting more short of breath. She did have some orthopnea but no PND. Patient does have chronic neck and upper back pain being followed up by pain clinic for which patient is on pain medication. She denied any hemoptysis. No fever or chills. No dysuria or hematuria. The patient does have polyuria, polydipsia. No vaginal discharge, spotting or bleeding. No heat or cold intolerance. No focal weakness. No further history available at this time. The patient does feel fatigued, tired and no energy. ALLERGY: Methylprednisolone. CURRENT MEDICATIONS: Includes [place], Ventolin HFA, DuoNeb, Eliquis, aspirin, Lipitor, calcium with vitamin D, vitamin D3, Cardizem CD, Cymbalta, Synthroid, Cozaar, Glucophage XR, Singulair, Protonix, prednisone, Advair, Topamax, Incruse. PAST MEDICAL HISTORY: COPD, chronic respiratory failure, tremor, gastritis and reflux disease, rhinitis, NIDDM, hypertension, hypothyroidism, hyperlipidemia, chronic neck pain, paroxysmal atrial fibrillation on anticoagulation. SOCIAL HISTORY: , lives by herself, quit smoking few years ago. Denied alcohol or substance abuse. Fairly independent in activities of daily living. FAMILY HISTORY: Significant for Parkinson disease, dementia, pulmonary embolism and lung cancer. REVIEW OF SYSTEMS: As per HPI. PHYSICAL EXAMINATION: GENERAL: Middle-aged white female patient in mild distress. VITAL SIGNS: Blood pressure 136/85, pulse 89, respiration 22, temperature 97.3 degrees. SKIN: Senile turgor. No rash or petechiae. HEENT: Head atraumatic, normocephalic. [place] conjunctivae. Anicteric sclerae. Extraocular muscle movement normal. Fundus cannot be penetrated. Good oral hygiene. No tonsillopharyngeal congestion or exudate. Ears and nose benign. NECK: Supple. No JVD, thyromegaly or lymphadenopathy. CHEST: Bilateral good air entry present. Bibasilar crepitation, occasional wheezing. CARDIOVASCULAR: S1 and S2 heard. No gallop or thrill. ABDOMEN: Soft, globular. Bowel sounds present. No organomegaly or mass. EXTREMITIES: No cyanosis, clubbing, no acute DVT. Peripheral pulsation intact. PANTOGRAPH I ENGRAVER: Alert, awake, able to move all 4 limbs. Crepitation both the knee joints. Tenderness lumbosacral spine. LAB DATA: WBC count 9.33, hemoglobin 12.7, hematocrit 40.5, platelet count 336,000. Electrolytes fairly benign. Urinalysis moderate leukocyte, WBC count less than 10. Chest x-ray revealed no evidence of acute disease. Her EKG revealed sinus rhythm, nonspecific T-wave changes on the anteroseptal lead, no acute ST-T wave changes. CONSIDERATION: Patient admitted with chest pain, multiple risk factors. Chest pain was at rest, some typical and some atypical features. I am going to admit patient for observation. Get risk factor stratification, stress test. Considering her COPD I am going to get dobutamine stress test, check appropriate labs. Her other problems include hypertension, paroxysmal atrial fibrillation, non-insulin dependent diabetes mellitus, hyperlipidemia, chronic neck pain, chronic respiratory failure, essential tremor on Topamax. Overall plan discussed with the patient and she is in agreement. We will continue home medicine. Fall precaution. cc: Uriah Pereira MD
[2018-11-16] MEDS ORDERED: GLUCOPHAGE XR PO SCH (21:00)
[2018-11-16] MEDS ORDERED: SINGULAIR PO SCH (21:00)
[2018-11-16] MEDS: ADVAIR 250/50 DISKUS INH SCH (21:10)
[2018-11-16] MEDS: TOPAMAX PO SCH (21:24)
[2018-11-16] MEDS: ELIQUIS PO SCH (21:24)
[2018-11-16] MEDS: NORCO-10 PO PRN (21:26)
[2018-11-17] MEDS: DUONEB (A & A) INH SCH ×3 (03:47→15:59)
[2018-11-17 06:32] LABS: HEMOGLOBIN A1C 5.5 % (4.8-6.0)
[2018-11-17 06:35] LABS: BASO# 0.05 X1000 (0.0-0.2); BASO% 0.4 % (0.0-0.8); EOS# 0.42 X1000 (0.0-0.7); EOS% 3.6 % (0.0-10.0); HEMOGLOBIN 13.2 g/dL (12.0-16.0); IMM GRAN# 0.05 X1000 (0.0-0.04); IMM GRAN% 0.4 % (0.0-0.5); LYMPH# 3.55 X1000 (1.2-3.4); LYMPH% 30.2 % (20.5-51.1); MCH 29.5 PG (27-31); MCHC 31.4 g/dL (33-37); MCV 93.8 FL (81-99); MONO# 0.92 X1000 (0.11-0.59); MONO% 7.8 % (1.7-9.3); MPV 10.2 FL (7.4-10.4); NEUT# 6.78 X1000 (1.4-6.5); NEUT% 57.6 % (42.2-75.2); PLT 378 X1000 (130-400); RBC 4.48 XMIL (4.2-5.4); RDW 13.1 % (11.5-14.5); WBC 11.77 X1000 (4.8-10.8)
[2018-11-17 06:55] LABS: FREE T4 1.19 ng/dL (0.93-1.70); TSH 2.37 uIUmL (0.27-4.20)
[2018-11-17] MEDS ORDERED: SYNTHROID PO SCH (07:00)
--- NOTE | 2018-11-17 07:29 | PROGRESS NOTE ---
DATE: 11/17/2108 SUBJECTIVE: Ms. Hopper is doing better. The patient claims she does have chest pain similar kind lasting for many seconds not associated with sweating or exertion. No fever or chills. Denied any dysphagia or odynophagia. Known case of advanced COPD. No typical chest pain or palpitations. No heat or cold intolerance. The patient was able to rest well. OBJECTIVE: Her vital signs noted. Neck is supple. No JVD.Lungs: Bibasilar crepitations. Heart: S1 and S2 heard. Abdomen: Soft, globular. Bowel sounds present. PLEATING MACHINE OPERATOR: Alert, awake and able to move all 4 limbs. LABORATORY DATA: CBC result reviewed. Electrolytes are pending. Hemoglobin A1c was 5.5. TSH 2.37. Free T4 1.19. ASSESSMENT: Patient's problems includes chest pain, VT ruled out by negative cardiac isoenzymes. Her EKG results reviewed. We are going to consider dobutamine stress test today. Her other problem includes gastritis and reflux disease, chronic respiratory failure, chronic neck pain, tremor and hypothyroidism. After reviewing stress test results, if it is negative, I am planning to discharge patient home today. PLAN: Overall plan discussed with the patient and she is in agreement. cc: Uriah Pereira MD
[2018-11-17] MEDS ORDERED: INCRUSE ELLIPTA INH SCH (07:30)
--- NOTE | 2018-11-17 07:36 | EKG Report ---
Test Performed on : 11/17/2018 07:04:18 AM Test Reason : CP Blood Pressure : / mmHG Vent. Rate : 073 BPM Atrial Rate : 073 BPM P-R Int : 150 ms QRS Dur : 070 ms QT Int : 422 ms P-R-T Axes : 037 011 062 degrees QTc Int : 464 ms Normal sinus rhythm. ST & T wave abnormality, consider anterior ischemia Abnormal ECG When compared with ECG of 16-NOV-2018 15:23, No significant change was found Confirmed by Gina OLIVARES, Vasu Bailon ([id number]) on 11/17/2018 9:34:32 AM
[2018-11-17 07:44] LABS: AGAP 15; ALB/GLOB RATIO 1.7; ALBUMIN 4.7 g/dL (3.5-5.0); ALKALINE PHOSPHATASE 104 U/L (32-104); BUN 15 mg/dL (8-22); CALCIUM 9.2 mg/dL (8.8-10.2); CHLORIDE 103 mmol/L (98-107); CHOLESTEROL 189 mg/dL (0-200); COSMO 284; CREATININE 0.9 mg/dL (0.5-0.9); ESTIMATED GFR > 60; GLUCOSE 99 mg/dL (70-104); GOT 16 U/L (10-30); GPT 16 U/L (10-36); HDL 71 mg/dL (45-65); LDL 85 mg/dL; SODIUM 142 mmol/L (136-145); TCO2 24 mmol/L (25-35); TOTAL PROTEIN 7.4 g/dL (6.3-8.3); TRIGLYCERIDES 165 mg/dL (35-135); VLDL 33 mg/dL
[2018-11-17] MEDS ORDERED: ASPIRIN EC PO SCH (09:00)
[2018-11-17] MEDS ORDERED: COZAAR PO SCH (09:00)
[2018-11-17] MEDS ORDERED: VITAMIN D PO SCH (09:00)
[2018-11-17] MEDS ORDERED: CARDIZEM CD PO SCH (09:00)
[2018-11-17] MEDS ORDERED: CALTRATE 600 + D PO SCH (09:00)
[2018-11-17] MEDS ORDERED: PREDNISONE PO SCH (09:00)
[2018-11-17] MEDS ORDERED: CYMBALTA PO SCH (09:00)
[2018-11-17] MEDS ORDERED: PRILOSEC PO SCH (09:00)
[2018-11-17] MEDS ORDERED: LEXISCAN ONE ×2 (09:58→10:08)
[2018-11-17] MEDS ORDERED: DOBUTAMINE 500/D5W 500 MG/250 ML IV.SOLN ONE (10:23)
[2018-11-17] MEDS ORDERED: ATROPINE SYRINGE ONE (11:01)
[2018-11-17] MEDS: TOPAMAX PO SCH (12:14)
[2018-11-17] MEDS: ELIQUIS PO SCH (12:15)
[2018-11-17] MEDS: NORCO-10 PO PRN (12:22)
[2018-11-17] MEDS: SODIUM CHLORIDE 0.9% INJ SCH (13:35)
[2018-11-17] MEDS: PROTONIX IV SCH (13:35)
[2018-11-17 15:04] VITALS: BP 110/56
[2018-11-17] MEDS: ADVAIR 250/50 DISKUS INH SCH (15:59)
--- NOTE | 2018-11-17 16:42 | Diag Imaging Result Document ---
PROCEDURE NAME: MYOCARDIAL PERF SCAN, STR/REST - 11/17/2018 STUDY: Rest/stress dobutamine myocardial perfusion study. INDICATION: Patient with chest pain. REQUESTING PHYSICIAN: Dr. Pereira. DESCRIPTION: The patient came into the nuclear lab, received a rest injection of technetium-99 sestamibi 15.4 mCi. Multiple tomographic views of the cardiac structures were obtained. Subsequently, the patient underwent infusion of dobutamine per protocol plus atropine. At peak infusion was injected with technetium-99 sestamibi 44.2 mCi. Multiple tomographic views of the cardiac structures were obtained following the completion of the protocol. SUMMARY OF ELECTROCARDIOGRAPHIC PORTION OF STUDY: Resting ECG shows sinus rhythm, rate of 72 beats per minute. Resting blood pressure 131/80. Resting ECG suggests the presence of right ventricular hypertrophy. The patient received a total of 34.08 mg of dobutamine infused over 13.32 minutes. At maximum infusion, rate was 40 mcg/kg per minute. The patient received 0.1 mg of atropine at peak infusion. The maximum heart rate achieved was 129 beats per minute, representing 82% of maximum predicted heart rate for the patient's age. Maximum blood pressure 145/69. Peak infusion ECG shows sinus tachycardia. The patient reported chest pressure of moderate severity with mild dyspnea at peak infusion. This resolved within the recovery phase. Some PACs and PVCs were noted. During the recovery phase, no significant abnormalities were noted. In summary, electrocardiographic response to dobutamine plus atropine is deemed to be negative for ischemia. The patient achieved 82% of maximum predicted heart rate for her age. SUMMARY OF THE MYOCARDIAL PERFUSION PORTION OF THE STUDY: Poststress tomographic views of the left ventricle showed normal homogeneous distribution of radiotracer throughout the entire ventricular myocardium. There is no evidence of any poststress defect. Rest images showed normal perfusion. Polar plots revealed the same. No evidence of any inducible ischemia nor myocardial scar. Gated SPECT shows normal left ventricular systolic function with ejection fraction estimated at 87% with normal ventricular volumes and no wall motion abnormality. The lung/heart ratio is normal. TID is normal. IMPRESSION: In summary, this study shows: 1. Unremarkable electrocardiographic response to dobutamine plus atropine. 2. Normal poststress myocardial perfusion scan. There is no scintigraphic evidence of pharmacologically induced myocardial ischemia. 2. Normal left ventricular systolic function with ejection fraction estimated at 87% with normal ventricular volumes and no wall motion abnormality. This study would indicate low risk for ischemic events. cc: MD Uriah Carranza MD
--- NOTE | 2018-11-17 17:27 | PROGRESS NOTE ---
DATE: 11/17/2018 Ms. Ruchi Medel is doing better. No unusual chest pain or shortness of breath. CO ruled out by negative cardiac isoenzymes. Oral intake was good. The patient underwent dobutamine stress test. Tolerated procedure well. Results reviewed. It was negative for reversible ischemia. Results discussed with the patient and son. They are in agreement. I am planning to discharge patient home today. Follow up with me in the office in 1 week. Continue home medicine. Fall precautions. Encouraged weight reduction. In case of more distress, call us back or go to the emergency room. Overall discharge condition satisfactory. cc: Uriah Pereira MD
[2018-11-17] MEDS ORDERED: LIPITOR PO SCH (21:00)
== END 2018-11-17 18:19 | disposition home or self-care (01) ==
LOC: DIRADM → 4N 13:56
PROVIDERS: ADMIT Internal Medicine; ATTEND Internal Medicine
CPT/HCPCS: 71020; 71046; 78452; 80053; 80061; 81001; 82550; 82948; 83036; 83735; 84439; 84443; 84484; 85025; 93005; 93010; 93017; 94640; 94761; A9270; A9500; C9113; J0461; J1250; J2785; J7506; J7512; S0164; XXXXX